=== PATIENT | female | born 1990 | race Caucasian/White ===

== ENCOUNTER → 2020-09-14 15:46 | Outpatient (BNVA) | payer BC, MEDICAID, SELFPAY | PROVIDERS: Family Provider Family Medicine; PCP Dermatology; Visit Provider Obstetrics & Gynecology | DX: Z12.9 Encounter for screening for malignant neoplasm, site unspecified (principal) | CPT/HCPCS: 88305 ==

== ENCOUNTER → 2021-10-23 10:34 | Outpatient (BNVA) | payer BC, MEDICAID, SELFPAY | PROVIDERS: Family Provider Family Medicine; PCP Dermatology; Visit Provider Obstetrics & Gynecology | DX: Z12.4 Encounter for screening for malignant neoplasm of cervix (principal); Z11.3 Encounter for screening for infections with a predominantly sexual mode of transmission; R53.83 Other fatigue | CPT/HCPCS: 84443; 85025; 86592; 86803; 87340; 87491; 87591; 87624; 87806 ==

== ENCOUNTER 2022-08-22 18:04 | Emergency (ER) | payer BC, MEDICAID, SELFPAY ==
[2022-08-22 18:08] VITALS: BP 118/83; PULSE 112; RESP 18; TEMP 37.1; O2SAT 97; BMI 34.1
--- NOTE | 2022-08-22 18:15 | XRR_ITS ---
PROCEDURE INFORMATION: Exam: XR Chest Exam date and time: 08/22/2022 6:20 PM Age: 32 years old Clinical indication: Fever TECHNIQUE: Imaging protocol: Radiologic exam of the chest. Views: 1 view. COMPARISON: CR XR chest 1V [id number] 08/01/2017 3:29 PM FINDINGS: Lungs: Unremarkable. No consolidation. Pleural spaces: Unremarkable. No pleural effusion. No pneumothorax. Heart/Mediastinum: Unremarkable. No cardiomegaly. Bones/joints: Unremarkable. XR/XR chest 1V portable [id number] IMPRESSION: No acute findings.
--- NOTE | 2022-08-22 18:27 | W.ED.URI ---
HPI - URI/Sore Throat General: Chief Complaint: Fever Stated Complaint: fever flu like symptoms Time Seen by Provider: 08/22/22 18:14 History of Present Illness: Patient is a 32-year-old female who comes to the ED with upper respiratory symptoms. 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 Rapid COVID swab was done at her work and it was negative. Her symptoms started approximately 2 days ago she has been having a fever, chills, body aches, cough, nasal congestion drainage and a sore throat. She had a temp of 104 today and took 800 mg of Motrin at 515. Denies any nausea or vomiting. Associated symptoms: Reports chills, fever(s) and nasal congestion; Deny abdominal pain, chest pain, diarrhea, headache(s), nausea or vomiting Review of Systems Const: Reports: fever(s), chills and body aches; Denies: fatigue Eyes: Denies: change in vision or eye discomfort ENMT: Reports: throat pain, nasal discharge and nasal congestion; Denies: odynophagia Card: Denies: chest pain, palpitations, edema, swelling of feet/ankles, dyspnea on exertion or orthopnea Resp: Reports: non-productive cough; Denies: dyspnea or productive cough GI: Denies: abdominal pain, nausea, vomiting, diarrhea, constipation or hematochezia : Denies: flank pain, dysuria or hematuria Musc: Denies: neck pain, back pain or extremity swelling Skin/Breast: Denies: rash or new lesions Neuro: Denies: headache(s), numbness in extremities or weakness in extremities PFSH ED PFSH: Medical History No pertinent past medical history Denies diabetes, asthma, hypertension, seizures, DVT/PE PCP: Maria E Singh Surgical History S/P section x 2 12/30/2014----->Primary low transverse delivery done by Dr. Castellano at [facility] [place] for breech presentation in active labor at 37 weeks and 4 days. No immediate postoperative complications. 01/15/2018------->Repeat low transverse section with bilateral salpingectomy for sterilization by Dr. Pavel Martinez at S/P tubal ligation 01/15/18 Dr Martinez--- total salpingectomy performed bilaterally at time of last Family History Mother Diabetes Hypertension Uterine cancer diagnosed in her mid 30s Grandmother Diabetes maternal Hypertension paternal Heart disease maternal Ovarian cancer maternal, diagnosed in her early 30s Uterine cancer maternal Thyroid condition maternal Family/Other Diabetes paternal uncle Ovarian cancer maternal aunt, diagnosed in her 30s Denies family history of Colon cancer Hyperlipidemia Breast cancer Stroke Physical Exam Const: COMMON NORMALS: no acute distress, patient oriented x3, healthy appearing and alert GENERAL APPEARANCE: cooperative HENMT: COMMON NORMALS: normocephalic HEAD & SCALP: normocephalic MOUTH: Normal oral and palatal mucosa present THROAT: uvula midline and posterior oropharynx abnormal erythema Eye: COMMON NORMALS: Equal, round and reactive pupils present and conjunctivae normal CONJUNCTIVA: Yes conjunctivae normal PUPIL: Yes Equal, round and reactive pupils present Neck/C-Spine: COMMON NORMALS: supple GENERAL: Yes normal visual inspection Resp: COMMON NORMALS: normal respiratory effort, No retractions, No use of accessory muscles and clear to auscultation bilaterally EFFORT & INSPECTION: Yes Actively coughing dry AUSCULTATION: clear to auscultation bilaterally Cardio: COMMON NORMALS: regular rate, regular rhythm, S1 normal heart sound present, S2 normal heart sound present, No gallops present (Cardio), No clicks present (Cardio), No murmurs present (Cardio) and Peripheral pulses 2+ throughout RATE: regular rate RHYTHM: regular rhythm HEART SOUNDS: S1 normal heart sound present and S2 normal heart sound present PERIPHERAL PULSES: Peripheral pulses 2+ throughout GI: COMMON NORMALS: Normal to inspection, nondistended, normoactive bowel sounds present, Soft to palpation, non-tender and no masses PALPATION: Yes Soft to palpation : COMMON NORMALS: Yes no CVA tenderness BLADDER/KIDNEY EXAM: Yes no CVA tenderness Back/Pelvis: COMMON NORMALS: no CVA tenderness Extremity: COMMON NORMALS: normal to inspection Neuro: COMMON NORMALS: patient oriented x3 SENSORIUM/ORIENTATION: Yes alert GAIT: Yes Normal gait present Skin: GENERAL SKIN EXAM: dry skin Course Vital Signs: Vital signs: Vital Signs Temperature 99.3 F 01/04/23 18:39 Pulse Rate 104 H 08/22/22 18:39 Respiratory Rate 16 08/22/22 18:39 Blood Pressure 118/79 08/22/22 18:39 Pulse Oximetry 94 08/22/22 18:39 Oxygen Delivery Me thod 08/22/22 18:39 MDM - URI/Sore Throat Medical Decision Making Patient is a 32-year-old female who comes to the ED with upper respiratory symptoms. 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 Rapid COVID swab was done at her work and it was negative. Her symptoms started approximately 2 days ago she has been having a fever, chills, body aches, cough, nasal congestion drainage and a sore throat. She had a temp of 104 today and took 800 mg of Motrin at 515. Denies any nausea or vomiting. Vitals are stable. Chest x-ray showed no acute findings. Strep was negative. Influenza a positive. Patient was stable for discharge home and diagnosed with influenza A. She was told to follow-up with PCP in the next week for reevaluation. Patient understood and agreed with plan. Lab Data I reviewed the patient's lab results. Radiology Impressions Chest X-Ray 08/22/22 18:15 IMPRESSION: No acute findings. Laboratory Results Influenza Type A Ag Positive (Negative) H 08/22/22 18:38 Influenza Type B Ag Negative (Negative) 08/22/22 18:38 Group A Strep Rapid Negative (Negative) 08/22/22 18:38 Discharge Plan Discharge Patient Disposition: Home Clinical Impression: Influenza A Condition: Stable Prescriptions: New azithromycin 250 mg tablet See Rx Instructions .ROUTE .COMPLEX Qty: 6 0RF Rx Instructions: For 250 mg dose pack: take 500 mg today (day 1), then 250 mg for 4 days (days 2-5) prednisone 20 mg tablet 20 mg PO BID 5 Days Qty: 10 0RF No Action phentermine 37.5 mg capsule 37.5 mg PO DAILY Rx Instructions: must administer 30 minutes before or 1-2 hours after breakfast Discharge Orders: Discharge ED (Routine); Ordered 08/22/22 Ordered By: Martin Ambriz Referrals: Norma Serrano MD [Family Provider] - Discharge Diet: Regular Discharge Activity: Resume usual activity Patient Instructions: Influenza (ED) Activity Restrictions/Additional Instructions: Follow-up with medical provider as directed in the next 5 to 7 days for reevaluation. Take medications as prescribed. Return to the ER or your medical provider if condition worsens. Please read and understand discharge instructions. Thank you for choosing [facility] for your healthcare needs today. Please realize this is an emergency room and that we are providing you with a medical screening exam and this may not be complete and all inclusive of all the testing and or work up that you may need to determine your ailment or severity of your illness. It is very important that you follow up as instructed or that you return to the Emergency Department should you have concerns or if your condition changes or worsens in any way. Stand Alone Forms: Work/School Release Coding Level of Care Code ED General Service Officer for Vinayak Veliz Exam Comprehensive
[2022-08-22 18:39] VITALS: BP 118/79; PULSE 104; RESP 16; TEMP 37.4; O2SAT 94
[2022-08-22 18:59] LABS: Rapid Strep A Test Negative (Negative)
[2022-08-22 19:11] LABS: Influenza A by IFA Positive (Negative); Influenza B by IFA Negative (Negative)
== END 2022-08-22 19:28 | disposition home or self-care (01) ==
PROVIDERS: Emergency Provider Physician Assistant; Family Provider Family Medicine
DX: J10.1 Influenza due to other identified influenza virus with other respiratory manifestations (principal)
CPT/HCPCS: 71045; 87081; 87804; 87880; 99284

== ENCOUNTER → 2022-11-13 12:10 | Outpatient (BNVA) | payer BC, MEDICAID, SELFPAY | PROVIDERS: Family Provider Family Medicine; Visit Provider Nurse Practitioner Women's Health | DX: Z11.3 Encounter for screening for infections with a predominantly sexual mode of transmission (principal) | CPT/HCPCS: 86592; 86803; 87340; 87806 ==

== ENCOUNTER 2023-03-21 11:09 | Outpatient (CLI) | payer BC, MEDICAID, SELFPAY ==
--- NOTE | 2023-03-21 11:22 | XR_ITS ---
WS: [id number] Lumbar spine, 3 views, 03/21/2023 Clinical Data: LUMBAR PAIN Comparison: Lumbar spine, 09/17/2018 Findings: No compression fractures or subluxation is seen. No disc space narrowing is seen. The transverse proc esses and SI joints are normal. XR/XR lumbar spine 2-3V* [id number] Impression: Negative lumbar spine.
--- NOTE | 2023-03-21 11:22 | XR_ITS ---
WS: [id number] Thoracic spine, 2 views, 03/21/2023 Clinical Data: THORACIC SPINE PAIN Comparison: Thoracic spine, 09/17/2018 Findings: No compression fractures are seen. The disc heights are normal. The paravertebral regions are normal. XR/XR thoracic spine 2V [id number] Impression: Negative thoracic spine.
--- NOTE | 2023-03-21 11:22 | XR_ITS ---
WS: [id number] Cervical spine, 3 views, 03/21/2023 Clinical Data: NECK PAIN Comparison: Cervical spine, 01/15/2006. Findings: No compression fractures are seen. The disc heights are normal. There is no prevertebral so ft tissue swelling. The odontoid is unremarkable. The soft tissues of the neck and the lung apices ar e normal. XR/XR cervical spine 3V* [id number] Impression: Negative cervical spine.
== END 2023-03-21 11:10 | disposition home or self-care (01) ==
LOC: RAD 11:14
PROVIDERS: PCP Nurse Practitioner Family; Visit Provider Nurse Practitioner Family
DX: M54.50 Low back pain, unspecified (principal); M54.2 Cervicalgia; M54.6 Pain in thoracic spine
CPT/HCPCS: 72040; 72070; 72100

== ENCOUNTER → 2023-04-18 19:02 | Outpatient (BNVA) | payer BC, MEDICAID, SELFPAY | PROVIDERS: PCP Nurse Practitioner Family; Visit Provider Registered Nurse Neonatal Intensive Care | DX: J02.9 Acute pharyngitis, unspecified (principal) | CPT/HCPCS: 87071; 87880 ==

== ENCOUNTER → 2023-07-23 08:32 | Outpatient (BNVA) | payer BC, MEDICAID, SELFPAY | PROVIDERS: PCP Nurse Practitioner Family; Visit Provider Nurse Practitioner Women's Health | DX: R10.2 Pelvic and perineal pain (principal) | CPT/HCPCS: 76830; 81000 ==

== ENCOUNTER 2023-09-19 08:51 | Inpatient (IN) | payer BC, MEDICAID, SELFPAY ==
[2023-09-19] VITALS (21 sets, daily range): BP systolic 91–151; BP diastolic 58–97; PULSE 84–119; RESP 16–20; TEMP 36.1–37.2; O2SAT 91–100
--- NOTE | 2023-09-19 05:08 | W.PM.OPSFHP ---
Same Day Surgery H&P Indication for Procedure/HPI DATE OF PROCEDURE: September 19, 2023 CHIEF COMPLAINT/INDICATIONFOR SURGICAL PROCEDURE: heavy menstrual bleeding chronic pelvic pain fibroid uterus PREOP DIAGNOSIS: heavy menstrual bleeding, fibroid uterus PLANNED PROCEDURE: Operation Date: 09/19/23 07:00 Proposed Procedures p Total abdominal hysterectomy 31902,R10.2,D25.9(Not Applicable) - Ramiro Curiel MD 33 y.o. h/o BTL 2018 h/o c-sections x two h/o irregular heavy periods with fibroid uterus on pelvic sono now scheduled for total abdominal hysterectomy Medications/Allergies* Home Medications Medication Instructions Recorded Confirmed Type phentermine 37.5 mg tablet 37.5 ea PO DAILY 04/18/23 09/18/23 History Allergies/Adverse Reactions Allergy/AdvReac Type Severity Reaction Status Date / Time peanut Allergy swelling/hi Verified 09/18/23 12:00 ves Pertinent History/Comorbid Conditions* Medical History (Updated 08/06/23 @ 15:53 by Charlotte Bee NP) No pertinent past medical history Denies diabetes, asthma, hypertension, seizures, DVT/PE PCP: Maria E Singh Surgical History (Updated 09/20/20 @ 17:43 by Karen Skinner MD) S/P tubal ligation 01/15/18 Dr Martinez--- total salpingectomy performed bilaterally at time of last S/P section x 2 12/30/2014----->Primary low transverse delivery done by Dr. Castellano at [facility] [place] for breech presentation in active labor at 37 weeks and 4 days. No immediate postoperative complications. 01/15/2018------->Repeat low transverse section with bilateral salpingectomy for sterilization by Dr. Pavel Martinez at [facility] Family History (Updated 10/23/21 @ 10:33 by Duyen Choudhary RN) Ovarian cancer Grandmother maternal, diagnosed in her early 30s Family/Other maternal aunt, diagnosed in her 30s Diabetes Mother Grandmother maternal Family/Other paternal uncle Heart disease Grandmother maternal Hypertension Mother Grandmother paternal Uterine cancer Mother diagnosed in her mid 30s Grandmother maternal Thyroid disease Grandmother maternal Denies family history of Colon cancer Hyperlipidemia Breast cancer Stroke Pertinent Exam Findings alert, oriented x 3, clear to auscultation bilaterally and regular rate & rhythm Recommendations Surgery/Procedure today Coding Level of Care Code Acute Code for Chg Fwd Time Spent (min) 10
[2023-09-19] MEDS: sodium chloride 0.9% 1,000 ML 30 ML IV (06:22)
[2023-09-19] MEDS: scopolamine 1.5 Patch 1 PATCH TRANSDERMA (06:23)
--- NOTE | 2023-09-19 06:35 | ANES.PREANE2 ---
Pre-Anesthetic Assessment Height/Weight: Height 1.65 m Weight 103.419 kg Temp Pulse Resp BP Pulse Ox O2 Del Method 97.3 F L 84 16 151/90 100 Room Air 09/19/23 05:53 09/19/23 05:53 09/19/23 05:53 09/19/23 05:53 09/19/23 05:53 09/19/23 06:09 Preop Diagnosis: heavy menstrual bleeding, fibroid uterus Operation Date: 09/19/23 07:00 Proposed Procedures p Total abdominal hysterectomy 26373,R10.2,D25.9(Not Applicable) - Ramiro Curiel MD Familial anesthetic complications: None Was Beta Ana taken within 24 hours: N/A Was Clonidine taken within 24 hours: N/A Last intake: Intake Last Liquid Date 09/18/23 Last Liquid Time 22:00 Last Solid Date 09/18/23 Last Solid Time 22:00 Social No alcohol and No tobacco Exam alert, oriented x 3, clear to auscultation bilaterally and regular rate & rhythm Airway Mallampati: Class II Dentition: full Metabolic Morbid Obesity Anesthetic Plan ASA status: 2 Anesthesia: General Risk of > 500 ml blood loss (7ml/kg in children): No Medications/Allergies Home Medications Medication Instructions Recorded Confirmed Last Taken Type phentermine 37.5 mg tablet 37.5 ea PO DAILY 04/18/23 09/18/23 08/19/23 History Allergies Allergy/AdvReac Type Severity Reaction Status Date / Time No Known Allergies Allergy Verified 09/19/23 06:00 Current Medications Generic Name Dose Route Start Last Admin Trade Name Freq PRN Reason Stop Dose Admin Sodium Chloride 1,000 mls @ 30 mls/hr 09/19/23 06:00 09/19/23 06:22 Sodium Chloride 0.9% IV 09/20/23 05:59 30 mls/hr .Q24H MICHELLE Administration PFSH Anesthesia Medical History No pertinent past medical history Denies diabetes, asthma, hypertension, seizures, DVT/PE PCP: Maria E Singh Surgical History S/P tubal ligation 01/15/18 Dr Martinez--- total salpingectomy performed bilaterally at time of last S/P section x 2 12/30/2014----->[place] transverse [place] [facility] [place]ch presentation in active labor at 37 weeks and 4 days. No immediate postoperative complications. 01/15/2018------->Repeat low transverse section with bilateral salpingectomy for sterilization by Dr. Pavel Martinez at [facility] Family History Mother Diabetes Hypertension Uterine cancer diagnosed in her mid 30s Grandmother Diabetes maternal Hypertension paternal Heart disease maternal Ovarian cancer maternal, diagnosed in her early 30s Uterine cancer maternal Thyroid disease maternal Family/Other Diabetes paternal uncle Ovarian cancer maternal aunt, diagnosed in her 30s Denies family history of Colon cancer Hyperlipidemia Breast cancer Stroke Female Reproductive History Date of last menstrual period: 08/03/23 Data Anesthesia 09/19/23 06:25 09/19/23 06:25 Cardiac Studies: No Data to Display
[2023-09-19] MEDS: midazolam 1 mg/mL INJ 2 mL 2 MG IVP (06:37)
[2023-09-19 06:39] LABS: Basophils # 0.1 10^3/uL (0.0-0.1); Basophils % 0.3 %; Eosinophils # 0.2 10^3/uL (0.0-0.8); Eosinophils % 1.1 %; Hematocrit 36.4 % (36-47); Lymphocytes # 2.5 10^3/uL (0.8-4.8); Lymphocytes % 16.3 %; Mean Corpuscular HGB Conc 32.4 g/dL (30-55); Mean Corpuscular Volume 80.2 fl (85-98); Monocytes # 1.1 10^3/uL (0.2-0.9); Monocytes % 7.2 %; Neutrophils # 11.08 10^3/uL (1.8-7.7); Neutrophils % 73.5 %; Nucleated Red Blood Cells % 0 %; Platelet Count 301 10^3/cmm (157-399); Red Blood Count 4.54 10^6/uL (3.85-5.65); Red Cell Distribution Width 14.6 % (12.1-15.1); White Blood Count 15.08 10^3/uL (3.29-11.43)
--- NOTE | 2023-09-19 06:45 | W.PM.OPSUD ---
Surgery/Procedure H&P Update DATE OF PROCEDURE: September 19, 2023 DATE H&P PERFORMED: 09/19/23 H&P UPDATE INFORMATION: I have reviewed H&P completed within last 30 days, I have examined patient prior to procedure and No changes to prior documentation PREOP DIAGNOSIS: heavy menstrual bleeding, fibroid uterus PLANNED PROCEDURE: Operation Date: 09/19/23 07:00 Proposed Procedures p Total abdominal hysterectomy 21799,R10.2,D25.9(Not Applicable) - Ramiro Curiel MD
[2023-09-19 06:53] LABS: Alanine Aminotransferase 13 U/L (0-33); Albumin Level 3.9 g/dL (3.5-5.2); Alkaline Phosphatase 98 U/L (35-105); Aspartate Amino Transferase 12 U/L (0-32); Blood Urea Nitrogen 14 mg/dL (6-20); Calcium 8.9 mg/dL (8.5-10.5); Carbon Dioxide 22 mmol/L (22-29); Chloride 110 mmol/L (98-107); Globulin 3.1 g/dL (1.3-4.6); Glucose 93 mg/dL (65-115); Osmolality Calculated 292 mOsm/kg (285-295); Sodium 141 mmol/L (136-145); Total Bilirubin 0.2 mg/dL (0.15-1.2)
[2023-09-19] MEDS: ceFAZolin 2,000 MG in sodium chloride 0.9% (plus) 50 ML 200 MG IV (06:59)
[2023-09-19 07:35] LABS: OR HCG Qualitative Urine Negative (Negative)
[2023-09-19] MEDS: BUPivacaine liposome 13.3 mg/mL SDV 10 mL 133 MG INJECTION (07:55)
[2023-09-19] MEDS: ceFAZolin 1,000 mg SDV 2000 MG IVP (10:56)
--- OUTSIDE RECORDS SUMMARY | 2023-09-19 11:19 | XMS_ITS | Patient Health Record ---
Author Name Unknown Organization [facility] Address [address] [place] [address] Care Team Providers Care Vice President Of Consulting Services Name Role Phone [facility] Primary Care Provider ALLAMUCHY, [facility] Unavailable Unavailable ALLERGIES No Known Allergies REASON FOR REFERRAL No Information MEDICATIONS Medication SIG (Take, Route, Frequency, Duration) Notes Start Date End Date Status Phentermine HCl 37.5 MG 1 tablet Oral On ce a day for 30 days 09/12/2023 Active Ibuprofen 800 MG 1 tablet with food o r milk as needed Orally every 8 hrs PRN for 90 days 06/06/2024 Active busPIRone HCl 15 MG 1/2 to 1 tab Orally three times a day for moderate anxiety for 30 days Not-Taking traMADol HCl 50 MG TAKE 1 TABLET BY SUKHWINDER TH EVERY 4 HOURS NEEDED FOR SEVERE PAIN FOR 30 DAYS for 30 09/13/2023 Active Venlafaxine HCl ER 37.5 MG TAKE 1 CAPSULE BY MOUTH ONCE DAILY IN THE MORNING FOR 30 DAYS Oral for 30 Days Not-Taking SOCIAL HISTORY Tobacco Use: Social History Observation Description Date Details (start date - stop date) Former Smoker NA - NA Sex Assigned At : Social History Observation Description Sex Assigned At Unknown Tobacco Use/Smoking Question Answer Notes Are you a former smoker How long has it been since you last smoked? > 10 years Alcohol Screen (Audit-C) Question Answer Notes Did you have a drink containing alcohol in the p ast year? No Points 0 Interpretation Negative PHQ-9 Question Answer Notes Little interest or pleasure in doing things Not at all Feeling down, depressed, or hopeless Not at all Trouble falling or staying asleep, or sleeping t oo much Not at all Feeling tired or having little energy Not at all Poor appetite or overeating Not at all Feeling bad about yourself, or that you are a failure, or have let yourself or your family down Not at all Trouble concentrating on thi ngs, such as reading the newspaper or watching television Not at all Moving or speaking so slowly that other people could have noticed. Or the opposite ? being so fidgety or restless that you have been moving around a lot more than usual Not at all Thoughts that you would be b sai off , or of hurting yourself in some way Not at all Total Score 0 PROBLEMS Problem Type ICD Code Onset Dates Problem Status W/U Status Risk SNOMED Code Notes Problem Morbid (severe) obesity due to excess calories (E66.01) Active confirmed Morbid obesity (disorder) (808488903) Problem Anxiety (F41.9) Active confirmed 886196 02 Problem Obesity (BMI 30-39.9) (E66.9) Active confirmed 935619513 Problem Obesity, unspecified classification, unspecified obesity type, unspecified whether serious comorbidity present (E66.9) Active confirmed 067281811 Problem BMI 40.0-44.9, adult (Z68.41) Active confirmed 183840849 Problem Acute non-recurrent frontal sinusitis (J01.10) Active confirmed 95213862 Problem Other depression (F32.89) Active confirmed 11517354 Problem Morbid obesity (E66.01) Active confirmed 777054014 Problem Major depressive disorder with single episode, remission status unspecified (F32.9) Active confirmed 93628480 Problem Encounter for weight management (Z76.89) Active confirmed 519717784 Problem Body mass index [BMI] 36.0-36.9, adult (Z68.36) Active confirmed 442684511 Problem Body mass index [BMI] 37.0-37.9, adult (Z68.37) Active confirmed 883422866 Problem Body mass index [BMI] 38.0-38.9, adult (Z68.38) Active confirmed 088340354 Problem Body mass index [BMI] 39.0-39.9, adult (Z68.39) Active confirmed 534378736 VITAL SIGNS Heart Rate 88 /min 09/12/2023 Temperature 97.7 degrees Fahrenheit 09/12/2023 Respiratory Rate 18 /min 09/12/2023 Height-cm 162.56 cm 09/12/2023 Oximetry 98 % 09/12/2023 Blood pressure diastolic 80 mm Hg 09/12/2023 Weight-kg 111.13 kg 09/12/2023 Height 64 in 09/12/2023 Blood pressure systolic 130 mm Hg 09/12/2023 Weight 245 lbs 09/12/2023 BMI 42.05 kg/m2 09/12/2023 Encounters Encounter Location Date Provider Diagnosis [facility] [address] [place] [address] 03/14/2023 [facility] Lumbar pain M54.50 [facility] [address] [place] [address] 03/22/2023 [facility] [address] [place] [address] 05/30/2023 [facility] [address] [place] [address] 05/30/2023 Maria E Orr Muscle spasm M62.838 and Thoracic spine pain M54.6 [facility] [address] [place] [address] 08/02/2023 Maria E Singh Thoracic spine pain M54.6 [facility] [address] [place] [address] 08/26/2023 [facility] [address] [place] [address] 09/10/2023 [facility] [address] [place] [address] 09/12/2023 [facility] Morbid (severe) obesity due to excess calories E66.01 ; BMI 40.0-44.9, adult Z68.41 and Uterine mass N85.8 [facility] [address] [place] [address] 06/24/2023 Maria E Singh Bronchitis J40 ; Former smoker Z87.891 ; Obesity (BMI 30-39.9) E66.9 and Body mass index [BMI] 39.0-39.9, adult Z68.39 [facility] [address] [place] [address] 07/23/2023 [facility] [address] [place] [address] 07/30/2023 [facility] [address] [place] [address] 04/26/2023 [facility] [address] [place] [address] 05/21/2023 [facility] Anxiety F41.9 ; Othe r depression F32.89 ; Obesity (BMI 30-39.9) E66.9 and Body mass index [BMI] 39.0-39.9, adult Z68.39 [facility] [address] [place] [address] 03/21/2023 [facility] Thoracic spine pain M54.6 ; Lumbar pain M54.50 ; Neck pain M54.2 and Body mass index [BMI] 39.0-39.9, adult Z68.39 [facility] [address] [place] [address] 12/11/2022 [facility] Other depression F32.89 ; Anxiety F41.9 ; Obesity (BMI 30-39.9) E66.9 ; Muscle spasm M62.838 ; Acute pain of right shoulder M25.511 and Body mass index [BMI] 39.0-39.9, adult Z68.39 [facility] [address] [place] [address] 02/15/2023 [facility] [address] [place] [address] 02/18/2023 [facility] Body mass index [BMI ] 39.0-39.9, adult Z68.39 ; Other depression F32.89 and Obesity (BMI 30-39.9) E66.9 ASSESSMENTS Encounter Date Diagnosis Assessment Notes Treatment Notes Treatment Clinical Notes 12/11/2022 Anxiety (ICD-10 - F41.9) continue meds 12/11/2022 Other depression (ICD-10 - F32.89) effexor xr 02/18/2023 Other depression (ICD-10 - F32.89) continue effexor continue with time off work and vacation days at [employer] with family 02/18/2023 Body mass index [BMI] 39.0-39.9, adult (ICD-10 - Z68.39) Discussed with the diet, increase water intake, increase activity, decrease calorie intake, take medication as directed; phentermine e script to patient pharmacy. Patient to lose minimum of 4 pounds and return to clinic 1 month and prn. Pts questions asked and answered. Discharged to home. 03/14/2023 Lumbar pain (ICD-10 - M54.50) 03/21/2023 Thoracic spine pain (ICD-10 - M54.6) tramadol prn severe continue ibuprofen prn as directed x ray 03/21/2023 Lumbar pain (ICD-10 - M54.50) x ray 05/21/2023 Anxiety (ICD-10 - F41.9) buspar 05/21/2023 Other depression (ICD-10 - F32.89) effexor 05/30/2023 Muscle spasm (ICD-10 - M62.838) 06/24/2023 Bronchitis (ICD-10 - J40) z wanda increased fluids 06/24/2023 Former smoker (ICD-10 - Z87.891) 08/02/2023 Thoracic spine pain (ICD-10 - M54.6) 09/12/2023 Morbid (severe) obesity due to excess calories (ICD-10 - E66.01) Discussed with the diet, increase water intake, increase activity, decrease calorie intake, take medication as directed; phentermine e script to patient pharmacy. Patient to lose minimum of 4 pounds and return to clinic 1 month and prn. Pts questions asked and answered. Discharged to home. 09/12/2023 BMI 40.0-44.9, adult (ICD-10 - Z68.41) 09/12/2023 Uterine mass (ICD-10 - N85.8) proceed surgery as planned 06/24/2023 Obesity (BMI 30-39.9) (ICD-10 - E66.9) Discussed with the diet, increase water intake, increase activity, decrease calorie intake, take medication as directed; phentermine e script to patient pharmacy. Patient to lose minimum of 4 pounds and return to clinic 1 month and prn. Pts questions asked and answered. Discharged to home. 02/18/2023 Obesity (BMI 30-39.9) (ICD-10 - E66.9) 05/30/2023 Thoracic spine pain (ICD-10 - M54.6) 05/21/2023 Obesity (BMI 30-39.9) (ICD-10 - E66.9) 03/21/2023 Neck pain (ICD-10 - M54.2) x ray 12/11/2022 Obesity (BMI 30-39.9) (ICD-10 - E66.9) Discussed with the diet, increase water intake, increase activity, decrease calorie intake, take medication as directed; phentermine e script to patient pharmacy. Patient to lose minimum of 4 pounds and return to clinic 1 month and prn. Pts questions asked and answered. Discharged to home. 12/11/2022 Muscle spasm (ICD-10 - M62.838) parafon 03/21/2023 Body mass index [BMI] 39.0-39.9, adult (ICD-10 - Z68.39) Discussed with the diet, increase water intake, increase activity, decrease calorie intake, take medication as directed; phentermine e script to patient pharmacy. Patient to lose minimum of 4 pounds and return to clinic 1 month and prn. Pts questions asked and answered. Discharged to home. 05/21/2023 Body mass index [BMI] 39.0-39.9, adult (ICD-10 - Z68.39) Discussed with the diet, increase water intake, increase activity, decrease calorie intake, take medication as directed; phentermine e script to patient pharmacy. Patient to lose minimum of 4 pounds and return to clinic 1 month and prn. Pts questions asked and answered. Discharged to home. 06/24/2023 Body mass index [BMI] 39.0-39.9, adult (ICD-10 - Z68.39) 12/11/2022 Acute pain of right shoulder (ICD-10 - M25.511) follow up with work and PT at her work as planned 12/11/2022 Body mass index [BMI] 39.0-39.9, adult (ICD-10 - Z68.39) 12/11/2022 Other Questions asked and answered; discharged to home. 02/18/2023 Other Questions asked and answered; discharged to home. 03/21/2023 Other Questions asked and answered; discharged to home. 05/21/2023 Other Questions asked and answered; discharged to home. 06/24/2023 Other Questions asked and answered; discharged to home. 09/12/2023 Other Questions asked and answered; discharged to home. PLAN OF TREATMENT Pending Test Test Name Order Date Cervical Spine AP/Lat 2-3 Views-[id number] Lumbosacral Spine AP/Lat-[id number] Thoracic Spine AP/Lat-[id number] 03/21/2023 Insurance Providers Payer Name Payer Address Payer Phone Subscriber Number Group Number Insured Name Patient Relationship to Insured Coverage Start Date Coverage End Date [employer] [place] Medicaid Replacement [address] [address] [place] [address] [id number] Belkis Palacios Self - patient is the insured MEDICAL (GENERAL) HISTORY Medical History History ICD Code Chicken Pox Pneumonia anemia bladder infections migraine headaches Back Trouble bronchitis asthma anxiety depression kidney stones Surgical History Surgery Date(Month/Year) section 12/30/2014 section 01/15/2018 tubal ligation Hospitalization History Reason Date(Month/Year) section 01/15/2018 section 12/30/2014
--- NOTE | 2023-09-19 12:30 | ANE.PACU2 ---
Inpatient post-anesthesia follow up: Airway intact: Yes Vital signs: Temperature 97 F Pulse Rate 102 Respiratory Rate 18 Blood Pressure 140/82 Pulse Oximetry 93 Oxygen Delivery Me thod Room Air Oxygen Flow Rate 5 Fraction of Inspir ed Oxygen Hydration adequate: Yes Nausea and vomiting: No Pain level: 1 Mental status: Baseline
[2023-09-19] MEDS: ondansetron 2 mg/ML SDV 2 mL 4 MG IVP (12:31)
[2023-09-19] MEDS: fentaNYL 50 mcg/mL INJ 2mL IVP (12:49)
[2023-09-19] MEDS: ketorolac 30 mg/mL INJ IVP ×2 (13:00→17:41)
[2023-09-19] MEDS: dextrose 5%-lactated ringers 1,000 ML 125 ML IV (13:01)
--- NOTE | 2023-09-19 13:15 | P.OP_ITS ---
Operative Report Date of procedure: September 19, 2023 Pre-op diagnosis: chronic heavy menstrual bleeding chronic pelvic pain h/o c-sections x two Post-op diagnosis: same Post-op findings: uterus enlarged with fibroids and adenomyosis Normal ovaries Dense adhesions from bladder to lower cervical segment Procedure done: supracervical abdominal hysterectomy Repair of 3 cm bladder laceration Implants: none Specimens removed/disposition: uterus Surgeon: Ramiro Curiel MD Product Marketing Intern: Deshawn sOuna MD Anesthesia: General Estimated blood loss (mL): 750 Complications: 3 cm bladder laceration, repaired Condition: stable Disposition: floor Brief History: 33 y.o. with chronic heavy menstrual bleeding and chronic pelvic pain Procedure: Informed consent obtained. The patient was taken to the operating room and placed supine on the table. General endotracheal anesthesia was induced. The abdomen was prepped and draped in the usual sterile fashion. A alcantara catheter was placed which drained clear urine. A pfannenstiel incision was made over an old scar and carried down through skin and subcutaneous tissue and fascia. The fascia was sharply incised. The rectus muscles were and the abdomen was entered bluntly in the midline. The pelvic contents were visualized and examined. An Angel-O retractor was placed. The bowels were packed out of the way. The Ligasure device was used throughout for vessel sealing and cutting. The hysterectomy was begun by dividing and ligating the round ligaments bilaterally. The infundibulopelvic ligaments were divided and skeletonized bilaterally. The ovaries were preserved by dividing the uterus from the uteroovarian ligaments. The vesicouterine peritoneal fold was incised in a transverse curvilinear fashion and sharply dissected downward mobilizing the bladder off the lower uterine segment. The uterine vessels were skeletonized and bilaterally divided and ligated. The procedure was carried down on both sides of the uterus until the cardinal uterosacral ligament was reached. The cervix was then incised. It was noted at this time that there was a 3 cm bladder laceration. Repair of the laceration was carried out using two layers of 2-O chromic and 2-O Vicryl, with the second layer being an imbricating stitch. Testing of the integrity of the repair was carried out using infusion of sterile baby formula via the Alcantara catheter. There was no extravasation of formula seen following the repair. Due to the dense adhesion between the bladder and lower cervical segment, it was decided to perform a supracervical hysterectomy. A 2 cm cervical stump was left following the hysterectomy. The pelvis was inspected and irrigated. There was no bleeding. The abdominal packs were removed as was the retractor. The fascia was then closed with a continuous stitch of O-Vicryl. The subcutaneous tissue was irrigated and inspected for hemostasis. The skin was then reapproximated using Insorb absorbable subcuticular skin jenn. The patient was then placed supine, extubated, and taken to the recovery room. Postoperative condition: stable EBL: 750 cc Sponge, needle, instruments counts were correct x two.
[2023-09-19] MEDS: oxyCODONE-APAP 5-325 mg Tablet PO ×2 (14:24→21:22)
[2023-09-19] MEDS: morphine 4 mg/mL SDV 1 mL IVP ×2 (14:32→17:40)
[2023-09-19] MEDS: phenazopyridine 100 mg Tablet 200 MG PO ×2 (14:49→22:27)
[2023-09-19] MEDS: oxybutynin chloride XL 5 MG TABLET 10 MG PO (17:39)
[2023-09-19] MEDS: docusate sodium 100 mg Capsule PO (17:42)
[2023-09-20] MEDS: ketorolac 30 mg/mL INJ IVP ×2 (00:48→07:25)
[2023-09-20 03:39] VITALS: RESP 16; O2SAT 98
[2023-09-20] MEDS: oxyCODONE-APAP 5-325 mg Tablet PO ×2 (03:39→10:45)
[2023-09-20 03:41] VITALS: BP 103/69; PULSE 76; RESP 16; TEMP 36.7; O2SAT 100
[2023-09-20 05:37] LABS: Hematocrit 31.7 % (36-47); Mean Corpuscular HGB Conc 31.9 g/dL (30-55); Mean Corpuscular Hemoglobin 26.3 pg (27-33); Mean Corpuscular Volume 82.6 fl (85-98); Mean Platelet Volume 9.2 fL (7.4-10.4); Platelet Count 298 10^3/cmm (157-399); Red Blood Count 3.84 10^6/uL (3.85-5.65); Red Cell Distribution Width 14.9 % (12.1-15.1); White Blood Count 20.56 10^3/uL (3.29-11.43)
[2023-09-20 10:05] VITALS: BP 104/73; PULSE 75; RESP 17; TEMP 36.7
[2023-09-20 10:45] VITALS: RESP 17
[2023-09-20] MEDS: oxybutynin chloride XL 5 MG TABLET 10 MG PO (10:45)
[2023-09-20] MEDS: simethicone 80 mg Chew PO ×2 (10:45→18:26)
[2023-09-20] MEDS: phenazopyridine 100 mg Tablet 200 MG PO ×2 (11:25→20:40)
--- NOTE | 2023-09-20 14:10 | P.PN_ITS ---
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 Subjective: Interval history: c/o moderate incisional pain tolerating PO Vitals/I&O/Wt Last Vital Signs Temp 97.4 F L 09/21/23 09:06 Pulse 79 09/21/23 12:38 Resp 16 09/21/23 12:38 BP 118/84 09/21/23 12:38 Pulse Ox 100 09/21/23 12:38 O2 Del Method Room Air 09/21/23 12:30 O2 Flow Rate 5 09/19/23 12:04 Physical Exam 2 Narrative: Comfortable Afebrile VS normal Lungs: clear Cor: RRR Abd: soft, nondistended Mild tenderness No rebound Wound clean and dry Shaffer draining well Ext: normal Urinary Catheter Management: Latex Free: Cath Placed During This Visit: yes Reason for Continuing Indwelling Catheter: Required Immobilization for Trauma or Surgery or Anesthesia Urinary Catheter Date of Insertion: 09/19/23 Urinary Catheter Time of Insertion: 14:30 Data 09/20/23 05:15 09/19/23 06:25 A&P Assessment and plan (1) S/P hysterectomy: POD #1 BIA, repair of bladder laceration Doing well Continue postop care Attestations 2 Medical Necessity Statement*: patient s/p hysterectomy, repair of bladder laceration Coding Level of Care Code Acute Code for Chg Fwd Diagnoses S/P hysterectomy Z90.710 Time Spent (min) 20
[2023-09-20 16:45] VITALS: BP 115/80; PULSE 74; RESP 17; TEMP 36.7
[2023-09-20] MEDS: HYDROcodone-acetaminophen 5-325 mg Tablet PO ×2 (17:27→23:47)
[2023-09-20] MEDS: docusate sodium 100 mg Capsule PO (17:27)
[2023-09-20] MEDS: ibuprofen 800 mg tablet PO (17:49)
[2023-09-20] MEDS: nitrofurantoin SR (BID) 100 mg Capsule PO (20:07)
[2023-09-20 22:10] VITALS: BP 103/57; PULSE 89; RESP 16; TEMP 36.9; O2SAT 96
[2023-09-21] MEDS: simethicone 80 mg Chew PO ×2 (00:51→08:59)
[2023-09-21] MEDS: ibuprofen 800 mg tablet PO ×2 (03:56→12:11)
[2023-09-21 06:24] VITALS: RESP 16
[2023-09-21] MEDS: oxyCODONE-APAP 5-325 mg Tablet PO ×2 (06:24→12:10)
[2023-09-21 06:35] VITALS: BP 112/71; PULSE 88; RESP 16; TEMP 36.6; TEMP 36.7; O2SAT 98
[2023-09-21] MEDS: oxybutynin chloride XL 5 MG TABLET 10 MG PO (08:59)
[2023-09-21] MEDS: nitrofurantoin SR (BID) 100 mg Capsule PO (08:59)
[2023-09-21] MEDS: docusate sodium 100 mg Capsule PO (08:59)
[2023-09-21 09:06] VITALS: BP 115/75; PULSE 77; RESP 17; TEMP 36.3; O2SAT 100
[2023-09-21] MEDS: phenazopyridine 100 mg Tablet 200 MG PO (10:46)
--- NOTE | 2023-09-21 11:50 | P.PN_ITS ---
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 Subjective: Interval history: c/o mild incisional pain eating, ambulating well Vitals/I&O/Wt Last Vital Signs Temp 97.4 F L 09/21/23 09:06 Pulse 79 09/21/23 12:38 Resp 16 09/21/23 12:38 BP 118/84 09/21/23 12:38 Pulse Ox 100 09/21/23 12:38 O2 Del Method Room Air 09/21/23 12:30 O2 Flow Rate 5 09/19/23 12:04 Physical Exam 2 Narrative: Comfortable Afebrile VS normal Lungs: clear Cor: RRR Abd: soft, nondistended Mild tenderness No rebound Wound clean and dry, healing well Alcantara draining well Ext: normal Urinary Catheter Management: Latex Free: Cath Placed During This Visit: yes Reason for Continuing Indwelling Catheter: Required Immobilization for Trauma or Surgery or Anesthesia Urinary Catheter Date of Insertion: 09/19/23 Urinary Catheter Time of Insertion: 14:30 Data 09/20/23 05:15 09/19/23 06:25 A&P Assessment and plan (1) S/P hysterectomy: Plan POD #2 BIA, repair of bladder laceration Doing well Plan discharge today Plan continue alcantara drainage x ten days Return September 24, 2023 Attestations 2 Medical Necessity Statement*: patient s/p hysterectomy, plan discharge today Coding Level of Care Code Acute Code for Chg Fwd Diagnoses S/P hysterectomy Z90.710 Time Spent (min) 20
--- NOTE | 2023-09-21 12:05 | P.DS_ITS ---
Discharge Providers PROGRAM DEVELOPMENT SPECIALIST Date of Admission: 09/19/23 08:51 Date of Discharge: 09/21/23 Attending Provider at Admission: Ramiro Curiel MD Attending Provider at Discharge: Ramiro Curiel MD Consults: none Primary PROGRAM DEVELOPMENT SPECIALIST: Ramiro Curiel MD Primary Care Provider: Maria E Singh APN Diagnoses at Discharge Discharge Diagnosis (1) S/P hysterectomy: Details from hospital stay: patient underwent supracervical hysterectomy complicated by 3 cm bladder laceration, repaired patient did well postop normal postop course plan continue alcantara drainage for 10 days postop Status: Acute Reason for Visit Reason for Visit: D25.9 Brief History: 33 y.o. with chronic menorrhagia and pel daniel pain h/o c-sections x two scheduled for hysterectomy Hospital Course Hospital Course patient underwent supracervical hysterectomy complicated by 3 cm bladder laceration, repaired patient did well postop remained afebrile was able to eat and ambulate without any difficulties normal postop course plan continue alcantara drainage for 10 days postop Physical Exam Narrative: Comfortable Afebrile VS normal Lungs: clear Cor: RRR Abd: soft, nondistended Mild tenderness No rebound Wound clean and dry, healing well Alcantara draining well Ext: normal Urinary Catheter Management: Latex Free: Cath Placed During This Visit: yes Reason for Continuing Indwelling Catheter: Required Immobilization for Trauma or Surgery or Anesthesia Urinary Catheter Date of Insertion: 09/19/23 Urinary Catheter Time of Insertion: 14:30 History History History 3 Term 3 0 Miscarriages/Ectopic 0 Living Children 3 Discharge Data Studies Completed and Pending Completed Studies During Hospitalization Category Date Time Status Pathology: Surgical [PTH] Routine Pth 09/19/23 10:00 Completed Laboratory Results WBC 20.56 10^3/uL (3.29-11.43) H 09/20/23 05:15 RBC 3.84 10^6/uL (3.85-5.65) L 09/20/23 05:15 Hgb 10.10 g/dL (11.27-16.99) L 09/20/23 05:15 Hct 31.7 % (36-47) L 09/20/23 05:15 MCV 82.6 fl (85-98) L 09/20/23 05:15 MCH 26.3 pg (27-33) L 09/20/23 05:15 MCHC 31.9 g/dL (30-55) 09/20/23 05:15 RDW 14.9 % (12.1-15.1) 09/20/23 05:15 Plt Count 298 10^3/cmm (157-399) 09/20/23 05:15 MPV 9.2 fL (7.4-10.4) 09/20/23 05:15 Neut % (Auto) 73.5 % 09/19/23 06:25 Lymph % (Auto) 16.3 % 09/19/23 06:25 [place] % (Auto) 7.2 % 09/19/23 06:25 Eos % (Auto) 1.1 % 09/19/23 06:25 Baso % (Auto) 0.3 % 09/19/23 06:25 Neut # (Auto) 11.08 10^3/uL (1.8-7.7) H 09/19/23 06:25 Lymph # (Auto) 2.5 10^3/uL (0.8-4.8) 09/19/23 06:25 [place] # (Auto) 1.1 10^3/uL (0.2-0.9) H 09/19/23 06:25 Eos # (Auto) 0.2 10^3/uL (0.0-0.8) 09/19/23 06:25 Baso # (Auto) 0.1 10^3/uL (0.0-0.1) 09/19/23 06:25 Nucleated RBC % (auto) 0 % 09/19/23 06:25 Nucleated RBCs # 0.0 /100WBC 09/19/23 06:25 Sodium 141 mmol/L (136-145) 09/19/23 06:25 Potassium 4.0 mmol/L (3.5-5.1) 09/19/23 06:25 Chloride 110 mmol/L (98-107) H 09/19/23 06:25 Carbon Dioxide 22 mmol/L (22-29) 09/19/23 06:25 Anion Gap 13.0 (5-19) 09/19/23 06:25 BUN 14 mg/dL (6-20) 09/19/23 06:25 Creatinine 0.5 mg/dL (0.5-0.9) 09/19/23 06:25 GFR Calculation 143.0 mL/min (90-130) H 09/19/23 06:25 Glucose 93 mg/dL (65-115) 09/19/23 06:25 Calculated Osmolality 292 mOsm/kg (285-295) 09/19/23 06:25 Calcium 8.9 mg/dL (8.5-10.5) 09/19/23 06:25 Total Bilirubin 0.2 mg/dL (0.15-1.2) 09/19/23 06:25 AST 12 U/L (0-32) 09/19/23 06:25 ALT 13 U/L (0-33) 09/19/23 06:25 Alkaline Phosphatase 98 U/L (35-105) 09/19/23 06:25 Total Protein 7.0 g/dL (6.6-8.7) 09/19/23 06:25 Albumin 3.9 g/dL (3.5-5.2) 09/19/23 06:25 Globulin 3.1 g/dL (1.3-4.6) 09/19/23 06:25 Urine HCG, Qual Negative (Negative) 09/19/23 06:26 Blood Type O Positive 09/19/23 06:25 Rho(D) Type Rh positive 09/19/23 06:25 Antibody Screen Negative 09/19/23 06:25 Procedures Performed supracervical hysterectomy repair of 3 cm bladder laceration Vitals Last Vital Signs Temp 97.4 F L 09/21/23 09:06 Pulse 79 09/21/23 12:38 Resp 16 09/21/23 12:38 BP 118/84 09/21/23 12:38 Pulse Ox 100 09/21/23 12:38 O2 Del Method Room Air 09/21/23 12:30 O2 Flow Rate 5 09/19/23 12:04 Results Labs OB ([facility]): Blood Type O Positive 09/19/23 Antibody Screen Negative 09/19/23 Hct 31.7 % (36-47) L 09/20/23 Hgb 10.10 g/dL (11.27-16.99) L 09/20/23 Rho(D) Type Rh positive 09/19/23 Plt Count 298 10^3/cmm (157-399) 09/20/23 Hep Bs Antigen Non-reactive (Nonreactive) 11/13/22 Hepatitis C Antibody Non-reactive (Nonreactive) 11/13/22 RPR Nonreactive (Nonreactive) 11/13/22 HIV 1&2 Ab & HIV 1 Ag Non-reactive (Non-Reactiv) 11/13/22 TSH 1.65 uIU/mL (0.27-4.20) 10/23/21 Pap Smear Interpret See note 10/23/21 Discharge Plan Discharge Patient Disposition: Home Condition: Stable Prescriptions: New mometasone 0.1 % cream 1 applic topical TID PRN (Reason: skin irritation) 7 Days Qty: 45 2RF Pyridium 100 mg tablet 100 mg PO Q8H PRN (Reason: pain) Qty: 60 2RF oxybutynin chloride 10 mg tablet extended release 24hr 10 mg PO DAILY Qty: 30 1RF Continued phentermine 37.5 mg tablet 37.5 ea PO DAILY Discharge Orders: Discharge Order (Routine); Ordered 09/21/23 Ordered By: Ramiro Curiel Discharge Diet: Usual diet Discharge Activity: Increase activity as tolerated Patient Instructions: Hysterectomy (DC), OB Abdominal Surgery - [facility], OB Discharge Report, OB Food/Drug Interaction Guide, Opioid Safety Discharge Attestations PROGRAM DEVELOPMENT SPECIALIST Time Spent in Discharge Care*: less than 30 min Coding Level of Care Code Acute Code for Chg Fwd Diagnoses S/P hysterectomy Z90.710 Time Spent (min) 25
[2023-09-21 12:10] VITALS: RESP 16
[2023-09-21 12:30] VITALS: BP 118/84; PULSE 79; RESP 16; O2SAT 100
[2023-09-21 12:38] VITALS: BP 118/84; PULSE 79; RESP 16; O2SAT 100
== END 2023-09-21 12:38 | disposition home or self-care (01) | DRG 742 ==
LOC: OBGYN 11:17
PROVIDERS: Anesthesiology; Admitting Provider Obstetrics & Gynecology; PCP Nurse Practitioner Family; Visit Provider Obstetrics & Gynecology
PROC: 0UT90ZZ Resection of Uterus, Open Approach (ICD-10-PCS; CPT 58150; principal; 2023-09-19 07:00)
DX: D25.9 Leiomyoma of uterus, unspecified (principal); N99.71 Accidental puncture and laceration of a genitourinary system organ or structure during a genitourinary system procedure; N80.03 Adenomyosis of the uterus; N73.6 Female pelvic peritoneal adhesions (postinfective); N92.0 Excessive and frequent menstruation with regular cycle; Y76.3 Surgical instruments, materials and obstetric and gynecological devices (including sutures) associated with adverse incidents; Y92.234 Operating room of hospital as the place of occurrence of the external cause; G89.29 Other chronic pain; Z98.51 Tubal ligation status; Z80.49 Family history of malignant neoplasm of other genital organs
CPT/HCPCS: 36415; 80053; 84703; 85025; 85027; 86850; 86900; 88307; C9290; J0131; J0690; J1100; J1170; J1885; J2250; J2270; J2405; J2704; J3010; J3490; J7030; J7121

== ENCOUNTER 2023-09-22 08:26 | Emergency (ER) | payer BC, MEDICAID, SELFPAY ==
[2023-09-22 08:31] VITALS: BP 131/87; PULSE 114; RESP 16; TEMP 36.9; O2SAT 99; BMI 38.6
--- NOTE | 2023-09-22 08:37 | W.ED.FEMALGU ---
HPI - Female Genitourinary General: Chief complaint: Urogenital-Female Stated complaint: CATH LEAKING, post hystercetomy Time Seen by Provider: 09/22/23 08:28 Source: patient Mode of arrival: ambulatory Limitations: no limitations History of Present Illness: 33-year-old female who had a hysterectomy last week she had a Shaffer placed that she is post to keep in until next week states she has had leaking around the Shaffer with urine leaking down her leg. She denies any pain denies any fever want to have her Shaffer checked out. Associated symptoms: Deny abdominal pain, headache(s) or nausea Review of Systems Const: Denies: fever(s), chills, body aches or change in appetite ENMT: Denies: throat pain or dental pain Card: Denies: chest pain Resp: Denies: dyspnea GI: Denies: abdominal pain, nausea, vomiting or diarrhea Musc: Denies: neck pain or back pain Neuro: Denies: headache(s) PFSH ED PFSH: Medical History No pertinent past medical history Denies diabetes, asthma, hypertension, seizures, DVT/PE PCP: Maria E Singh Surgical History S/P tubal ligation 01/15/18 Dr Martinez--- total salpingectomy performed bilaterally at time of last S/P section x 2 12/30/2014----->[place] [facility] [place] in active labor at 37 weeks and 4 days. No immediate postoperative complications. 01/15/2018------->Repeat low transverse section with bilateral salpingectomy for sterilization by Dr. Pavel Martinez at [facility] Family History Mother Diabetes Hypertension Uterine cancer diagnosed in her mid 30s Grandmother Diabetes maternal Hypertension paternal Heart disease maternal Ovarian cancer maternal, diagnosed in her early 30s Uterine cancer maternal Thyroid disease maternal Family/Other Diabetes paternal uncle Ovarian cancer maternal aunt, diagnosed in her 30s Denies family history of Colon cancer Hyperlipidemia Breast cancer Stroke Physical Exam Const: COMMON NORMALS: no acute distress, patient oriented x3 and healthy appearing HENMT: COMMON NORMALS: normocephalic and atraumatic HEAD & SCALP: normocephalic and atraumatic Neck/C-Spine: COMMON NORMALS: full ROM and supple Chest: COMMONS NORMALS: normal inspection of the chest Resp: COMMON NORMALS: normal respiratory effort GI: COMMON NORMALS: Normal to inspection, nondistended, normoactive bowel sounds present, Soft to palpation, non-tender and no masses PALPATION: Yes Soft to palpation : OTHER: Shaffer in place with leaking around Shaffer Extremity: COMMON NORMALS: normal to inspection and full ROM Neuro: COMMON NORMALS: patient oriented x3, moves all extremities and no focal motor deficits Psych: COMMON NORMALS: mental status grossly normal, Normal thought process present and cooperative THOUGHT PROCESS: Normal thought process present Skin: COMMON NORMALS: no rashes or lesions noted and no wounds GENERAL SKIN EXAM: no rashes or lesions noted Course Vital Signs: Vital signs: Vital Signs Temperature 98.4 F 09/22/23 08:31 Pulse Rate 114 H 09/22/23 08:31 Respiratory Rate 16 09/22/23 08:31 Blood Pressure 131/87 09/22/23 08:31 Pulse Oximetry 99 09/22/23 08:31 Oxygen Delivery Me thod Room Air 09/22/23 08:31 MDM - Female Medical Decision Making Patient presents for Shaffer complication nurse did advance a Shaffer and blew up the balloon it is no longer leaking she is stable for discharge follow-up with Dr. Curiel as scheduled next week return if worsening. Medical Records I reviewed the patient's medical records. No radiology studies performed this visit Discharge Plan Discharge Patient Disposition: Home Clinical Impression: Complication of Shaffer catheter Qualifiers: Encounter type: initial encounter Qualified Code(s): T83.9XXA - Unspecified complication of genitourinary prosthetic device, implant and graft, initial encounter Condition: Stable Prescriptions: No Action phentermine 37.5 mg tablet 37.5 ea PO DAILY Macrobid 100 mg capsule 100 mg PO BID 10 Days Qty: 20 0RF Rx Instructions: must administer with a meal/food mometasone 0.1 % cream 1 applic topical TID PRN (Reason: skin irritation) 7 Days Qty: 45 2RF Pyridium 100 mg tablet 100 mg PO Q8H PRN (Reason: pain) Qty: 60 2RF oxybutynin chloride 10 mg tablet extended release 24hr 10 mg PO DAILY Qty: 30 1RF Percocet 10-325 mg tablet 1 tab PO BID PRN (Reason: pain) Qty: 30 0RF Discharge Orders: Discharge ED (Routine); Ordered 09/22/23 Ordered By: Jose Adame Referrals: Ramiro Curiel MD [Physician] - 4-7 days Discharge Diet: Advance as tolerated Discharge Activity: Resume usual activity Patient Instructions: Shaffer Catheter Placement and Care (ED) Coding Level of Care Code ED Mushroom Grower for Vinayak Veliz
[2023-09-22 08:55] VITALS: BP 147/82; PULSE 96; O2SAT 97
== END 2023-09-22 08:55 | disposition home or self-care (01) ==
PROVIDERS: Emergency Provider Emergency Medicine; PCP Nurse Practitioner Family
DX: T83.038A Leakage of other urinary catheter, initial encounter (principal); Y73.1 Therapeutic (nonsurgical) and rehabilitative gastroenterology and urology devices associated with adverse incidents
CPT/HCPCS: 99282

== ENCOUNTER 2024-05-04 14:43 | Emergency (ER) | payer BC, MEDICAID, SELFPAY ==
[2024-05-04 14:51] VITALS: BP 118/65; PULSE 103; TEMP 37.1; O2SAT 97; BMI 40.1
--- NOTE | 2024-05-04 15:48 | ECG_ITS ---
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 Measurements Intervals [place] Rate: 111 P: 35 [place]: 112 QRS: 22 QRSD: 87 T: 29 QT: 322 QTc: 438 Interpretive Statements SINUS TACHYCARDIA WITH SHORT [place] INTERVAL Compared to ECG 08/01/2017 18:02:42 Short [place] interval now present Electronically Signed On 05-04-2024 16:04:52 CDT by Ovi Ramon M.D. [email or web address] First [employer] Its Kind [id number]
--- NOTE | 2024-05-04 15:48 | XRR_ITS ---
PROCEDURE INFORMATION: Exam: XR Chest Exam date and time: 05/04/2024 3:57 PM Age: 34 years old Clinical indication: Pain; Angina pectoris; Additional info: Chest pain TECHNIQUE: Imaging protocol: Radiologic exam of the chest. Views: 1 view. COMPARISON: CR XR chest 1V portable [id number] 08/22/2022 6:20 PM FINDINGS: Lungs: No focal consolidation. Pleural spaces: No evidence of pneumothorax. No evidence of pleural effusion. Heart/Mediastinum: Cardiomediastinal silhouette is within normal limits. Bones/joints: No evidence of acute osseous abnormality. XR/XR chest 1V portable [id number] IMPRESSION: 1. No acute cardiopulmonary abnormality.
[2024-05-04 16:24] LABS: Basophils % 0.3 %; Eosinophils % 0.2 %; Hematocrit 41.3 % (36-47); Lymphocytes # 2.5 10^3/uL (0.8-4.8); Lymphocytes % 17.2 %; Mean Corpuscular HGB Conc 31.7 g/dL (30-55); Mean Corpuscular Hemoglobin 24.4 pg (27-33); Mean Corpuscular Volume 77.1 fl (85-98); Mean Platelet Volume 9.6 fL (7.4-10.4); Monocytes # 1.1 10^3/uL (0.2-0.9); Monocytes % 7.8 %; Neutrophils # 10.57 10^3/uL (1.8-7.7); Nucleated Red Blood Cells % 0 %; Platelet Count 379 10^3/cmm (157-399); Red Blood Count 5.36 10^6/uL (3.85-5.65); Red Cell Distribution Width 15.1 % (12.1-15.1); White Blood Count 14.29 10^3/uL (3.29-11.43)
[2024-05-04 16:44] LABS: Alanine Aminotransferase 12 U/L (0-33); Albumin Level 4.3 g/dL (3.5-5.2); Alkaline Phosphatase 114 U/L (35-105); Anion Gap 14.2 (5-19); Aspartate Amino Transferase 13 U/L (0-32); Blood Urea Nitrogen 9 mg/dL (6-20); Calcium 8.9 mg/dL (8.5-10.5); Carbon Dioxide 26 mmol/L (22-29); Chloride 102 mmol/L (98-107); Creatinine Clr Calc Pharmacy 164.0603; Globulin 3.3 g/dL (1.3-4.6); Glomerular Filtration Rate 115.1 mL/min (90-130); Glucose 97 mg/dL (65-115); Osmolality Calculated 287 mOsm/kg (285-295); Potassium 3.2 mmol/L (3.5-5.1); Sodium 139 mmol/L (136-145); Total Bilirubin 0.3 mg/dL (0.15-1.2); Total Protein 7.6 g/dL (6.6-8.7)
--- NOTE | 2024-05-04 18:32 | ECG_ITS ---
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 Measurements Intervals [place] Rate: 83 P: 55 NH: 124 QRS: 31 QRSD: 91 T: 35 QT: 354 QTc: 418 Interpretive Statements SINUS RHYTHM WITH SINUS ARRHYTHMIA Compared to ECG 05/04/2024 14:49:33 Sinus tachycardia no longer present Short [place] interval no longer present Electronically Signed On 05-05-2024 15:27:37 CDT by Ovi Ramon M.D. [id number] f
[2024-05-04 18:34] VITALS: BP 113/68; PULSE 84; TEMP 36.8; O2SAT 98
[2024-05-04 20:18] VITALS: BP 153/84; PULSE 90; RESP 16; O2SAT 97
--- NOTE | 2024-05-04 21:03 | W.ED.CHESTPA ---
HPI - Chest Pain General: Chief Complaint: Chest Pain Stated Complaint: CP/SOB Time Seen by Provider: 05/04/24 20:25 History of Present Illness: Patient says she feels like he has pressure in her left chest that radiates into her back and down her left arm. She has been having this off and on all day today. She says she does not have any cardiac history herself, no MIs no stents. She says her mother has had a heart attack in her 30s. Patient also says she feels fatigued. Denies any shortness of breath diaphoresis or nausea or vomiting. Patient does states she has a history of anxiety and has a lot going on and increase stress in her life. Related Data Home Medications Medication Instructions Recorded Confirmed phentermine 37.5 mg tablet 37.5 ea PO DAILY 04/18/23 04/12/24 Previous Rx's Medication Instructions Recorded cetirizine 10 mg tablet (Zyrtec) 10 mg PO DAILY PRN allergy 01/24/24 symptoms #60 tabs amoxicillin 500 mg tablet 500 mg PO TID #15 tabs 04/12/24 Allergies Allergy/AdvReac Type Severity Reaction Status Date / Time latex Allergy ALGY-Redness Verified 04/12/24 17:42 of Skin Review of Systems General: Reports: 10 or more systems reviewed and unremarkable except in HPI and below PFSH ED PFSH: Medical History No pertinent past medical history Denies diabetes, asthma, hypertension, seizures, DVT/PE PCP: Maria Era Singh Surgical History S/P hysterectomy S/P tubal ligation 01/15/18 Dr Martinez--- total salpingectomy performed bilaterally at time of last S/P section x 2 12/30/2014----->[place] [facility] [place] presentation in active labor at 37 weeks and 4 days. No immediate postoperative complications. 01/15/2018------->Repeat low transverse section with bilateral salpingectomy for sterilization by Dr. Pavel Martinez at [facility] Family History Mother Diabetes Hypertension Uterine cancer diagnosed in her mid 30s Grandmother Diabetes maternal Hypertension paternal Heart disease maternal Ovarian cancer maternal, diagnosed in her early 30s Uterine cancer maternal Thyroid disease maternal Family/Other Diabetes paternal uncle Ovarian cancer maternal aunt, diagnosed in her 30s Denies family history of Colon cancer Hyperlipidemia Breast cancer Stroke Social History Smoking and tobacco/nicotine status: unknown if used tobacco/nicotine Physical Exam Const: COMMON NORMALS: no acute distress, average body habitus, patient oriented x3, no limitations, healthy appearing, alert and well nourished HENMT: COMMON NORMALS: normocephalic, atraumatic, hearing grossly normal bilaterally, external ears normal, Normal external nose present and moist oral mucous membranes HEAD & SCALP: normocephalic and atraumatic NOSE: Normal external nose present EXTERNAL EAR: Yes external ears normal Neck/C-Spine: COMMON NORMALS: full ROM, no lymphadenopathy, supple, no meningeal signs, no JVD and Thyroid normal THYROID: Thyroid normal Chest: COMMONS NORMALS: normal inspection of the chest and normal palpation of entire chest wall Resp: COMMON NORMALS: normal respiratory effort, No retractions, No use of accessory muscles and clear to auscultation bilaterally AUSCULTATION: clear to auscultation bilaterally Cardio: COMMON NORMALS: no JVD, regular rate, regular rhythm, S1 normal heart sound present, S2 normal heart sound present, No gallops present (Cardio), No clicks present (Cardio), No murmurs present (Cardio) and No rub (Cardio) RATE: regular rate RHYTHM: regular rhythm HEART SOUNDS: S1 normal heart sound present and S2 normal heart sound present GI: COMMON NORMALS: Normal to inspection, nondistended, normoactive bowel sounds present, Soft to palpation, non-tender, No hepatosplenomegaly present and no masses PALPATION: Yes Soft to palpation and Yes No hepatosplenomegaly present Neuro: COMMON NORMALS: patient oriented x3 SENSORIUM/ORIENTATION: Yes alert MENINGEAL SIGNS: Yes no meningeal signs Course Vital Signs: Vital signs: Vital Signs Temperature 98.2 F 05/04/24 18:34 Pulse Rate 91 05/04/24 22:32 Respiratory Rate 16 05/04/24 22:32 Blood Pressure 135/85 05/04/24 22:32 Pulse Oximetry 97 05/04/24 22:32 Oxygen Delivery Me thod Room Air 05/04/24 20:18 MDM - Chest Pain Medical Decision Making Patient left AGAINST MEDICAL ADVICE while waiting for lab work to come back Differential Diagnosis Unlikely acute massive pulmonary embolism, acute respiratory failure, acute myocardial infarction, cardiac arrest or sudden cardiac Medical Records I reviewed the patient's medical records. Lab Data I reviewed the patient's lab results. 05/04/24 15:58 05/04/24 15:58 Radiology Impressions Chest X-Ray 05/04/24 15:48 IMPRESSION: 1. No acute cardiopulmonary abnormality. Laboratory Results WBC 14.29 10^3/uL (3.29-11.43) H 05/04/24 15:58 RBC 5.36 10^6/uL (3.85-5.65) 05/04/24 15:58 Hgb 13.10 g/dL (11.27-16.99) 05/04/24 15:58 Hct 41.3 % (36-47) 05/04/24 15:58 MCV 77.1 fl (85-98) L 05/04/24 15:58 MCH 24.4 pg (27-33) L 05/04/24 15:58 MCHC 31.7 g/dL (30-55) 05/04/24 15:58 RDW 15.1 % (12.1-15.1) 05/04/24 15:58 Plt Count 379 10^3/cmm (157-399) 05/04/24 15:58 MPV 9.6 fL (7.4-10.4) 05/04/24 15:58 Neut % (Auto) 74.0 % 05/04/24 15:58 Lymph % (Auto) 17.2 % 05/04/24 15:58 [place] % (Auto) 7.8 % 05/04/24 15:58 Eos % (Auto) 0.2 % 05/04/24 15:58 Baso % (Auto) 0.3 % 05/04/24 15:58 Neut # (Auto) 10.57 10^3/uL (1.8-7.7) H 05/04/24 15:58 Lymph # (Auto) 2.5 10^3/uL (0.8-4.8) 05/04/24 15:58 [place]aton # (Auto) 1.1 10^3/uL (0.2-0.9) H 05/04/24 15:58 Eos # (Auto) 0.0 10^3/uL (0.0-0.8) 05/04/24 15:58 Baso # (Auto) 0.0 10^3/uL (0.0-0.1) 05/04/24 15:58 Nucleated RBC % (auto) 0 % 05/04/24 15:58 Nucleated RBCs # 0.0 /100WBC 05/04/24 15:58 Sodium 139 mmol/L (136-145) 05/04/24 15:58 Potassium 3.2 mmol/L (3.5-5.1) L 05/04/24 15:58 Chloride 102 mmol/L (98-107) 05/04/24 15:58 Carbon Dioxide 26 mmol/L (22-29) 05/04/24 15:58 Anion Gap 14.2 (5-19) 05/04/24 15:58 BUN 9 mg/dL (6-20) 05/04/24 15:58 Creatinine 0.6 mg/dL (0.5-0.9) 05/04/24 15:58 GFR Calculation 115.1 mL/min (90-130) 05/04/24 15:58 Glucose 97 mg/dL (65-115) 05/04/24 15:58 Calculated Osmolality 287 mOsm/kg (285-295) 05/04/24 15:58 Calcium 8.9 mg/dL (8.5-10.5) 05/04/24 15:58 Total Bilirubin 0.3 mg/dL (0.15-1.2) 05/04/24 15:58 AST 13 U/L (0-32) 05/04/24 15:58 ALT 12 U/L (0-33) 05/04/24 15:58 Alkaline Phosphatase 114 U/L (35-105) H 05/04/24 15:58 Troponin T 5th Gen ng/L < 6 ng/L (0-10) 05/04/24 22:31 Total Protein 7.6 g/dL (6.6-8.7) 05/04/24 15:58 Albumin 4.3 g/dL (3.5-5.2) 05/04/24 15:58 Globulin 3.3 g/dL (1.3-4.6) 05/04/24 15:58 All radiology interpretation(s) finalized by discharge Discharge Plan Discharge Patient Disposition: Left Against Medical Advice Clinical Impression: Left against medical advice Condition: Stable Prescriptions: No Action cetirizine [Zyrtec] 10 mg tablet 10 mg PO DAILY PRN (Reason: allergy symptoms) Qty: 60 0RF amoxicillin 500 mg tablet 500 mg PO TID Qty: 15 0RF phentermine 37.5 mg tablet 37.5 ea PO DAILY Referrals: Singh,Maria E, EDUCATIONAL FUNDRAISING DIRECTOR [Primary Care Provider] - 1 week Patient Instructions: Against Medical Advice (ED) Coding Level of Care Code ED Director Of Veterans Affairs for Vinayak Veliz
[2024-05-04 22:32] VITALS: BP 135/85; PULSE 91; RESP 16; O2SAT 97
[2024-05-04 22:47] LABS: Troponin T (5th) Once < 6 ng/L (0-10)
== END 2024-05-04 22:32 | disposition left against medical advice (07) ==
PROVIDERS: Emergency Medicine; Emergency Provider Emergency Medicine; PCP Nurse Practitioner Family
DX: R07.9 Chest pain, unspecified (principal); Z53.29 Procedure and treatment not carried out because of patient's decision for other reasons
CPT/HCPCS: 36415; 71045; 80053; 84484; 85025; 93005; 99285

== ENCOUNTER 2024-05-22 15:53 | Outpatient (CLI) | payer BC, MEDICAID, SELFPAY ==
--- NOTE | 2024-05-22 15:56 | XR_ITS ---
WS: [id number] LEFT FOOT: 3 VIEW(S) TECHNIQUE: AP, oblique and lateral. HISTORY: LEFT FOOT PAIN COMPARISON: 11/09/2009 LEFT ankle No acute fracture or dislocation. Normal tarsal/metatarsal alignment. Development of a 6.5 mm calcaneal spur since 2009. Otherwise calcaneus is negative. XR/XR foot LT min 3V* [id number] IMPRESSION: New calcaneal spur since 2009.
== END 2024-05-22 15:54 | disposition home or self-care (01) ==
LOC: RAD 15:54
PROVIDERS: PCP Nurse Practitioner Family; Visit Provider Nurse Practitioner Family
DX: M77.32 Calcaneal spur, left foot (principal)
CPT/HCPCS: 73630

== ENCOUNTER → 2024-07-12 14:04 | Outpatient (BNVA) | payer BC, MEDICAID, SELFPAY | PROVIDERS: PCP Nurse Practitioner Family; Visit Provider Emergency Medicine | DX: R50.9 Fever, unspecified (principal); J02.9 Acute pharyngitis, unspecified | CPT/HCPCS: 87071; 87400; 87880 ==

== ENCOUNTER → 2024-09-14 08:43 | Outpatient (BNVA) | payer BC, MEDICAID, SELFPAY | PROVIDERS: PCP Nurse Practitioner Family; Visit Provider Obstetrics & Gynecology | DX: R10.2 Pelvic and perineal pain (principal) | CPT/HCPCS: 83001; 84443; 85025 ==

== ENCOUNTER → 2024-09-21 07:54 | Outpatient (BNVA) | payer BC, SELFPAY | PROVIDERS: PCP Nurse Practitioner Family; Visit Provider Obstetrics & Gynecology | DX: R10.2 Pelvic and perineal pain (principal); Z98.890 Other specified postprocedural states | CPT/HCPCS: 76830; 76856 ==

== ENCOUNTER 2024-11-29 16:26 | Emergency (ER) | payer MEDICAID, SELFPAY ==
[2024-11-29 16:43] VITALS: BP 113/83; PULSE 91; RESP 16; TEMP 36.4; O2SAT 100; BMI 39.9
--- NOTE | 2024-11-29 16:58 | USR_ITS ---
PROCEDURE INFORMATION: Exam: US Abdomen, Limited; Right Upper Quadrant Exam date and time: 11/29/2024 5:54 PM Age: 34 years old Clinical indication: Abdominal pain; Localized; Right upper quadrant (ruq); Additional info: Ruq pain, n/v TECHNIQUE: Imaging protocol: Real time ultrasound of the abdomen with image documentation. Limited exam focused on the right upper quadrant. COMPARISON: US pelv w/transvag [id number] 09/21/2024 8:04 AM FINDINGS: Liver: Echogenic, consistent with fatty infiltration. Gallbladder: Cholelithiasis and mild gallbladder distension. No gallbladder wall thickening or pericholecystic fluid. Negative sonographic Yeboah's sign, as per the performing associate medical director. Biliary ducts: No stones. No ductal dilatation. Pancreas: Unremarkable as visualized. Right kidney: No mass. No definite stones. No hydronephrosis. US/US gall bladder [id number] IMPRESSION: 1. Cholelithiasis and mild gallbladder distension without gallbladder wall thickening or pain on transduction. 2. Fatty liver.
[2024-11-29 16:59] LABS: Basophils # 0.1 10^3/uL (0.0-0.1); Basophils % 0.4 %; Eosinophils # 0.1 10^3/uL (0.0-0.8); Eosinophils % 0.8 %; Hematocrit 39.6 % (36-47); Lymphocytes % 21.9 %; Mean Corpuscular HGB Conc 30.8 g/dL (30-55); Mean Corpuscular Hemoglobin 24.6 pg (27-33); Mean Platelet Volume 9.3 fL (7.4-10.4); Monocytes # 1.2 10^3/uL (0.2-0.9); Monocytes % 6.8 %; Neutrophils # 12.38 10^3/uL (1.8-7.7); Neutrophils % 68.4 %; Nucleated Red Blood Cells % 0 %; Platelet Count 347 10^3/cmm (157-399); Red Blood Count 4.95 10^6/uL (3.85-5.65); Red Cell Distribution Width 14.8 % (12.1-15.1); White Blood Count 18.11 10^3/uL (3.29-11.43)
[2024-11-29 17:17] LABS: Alanine Aminotransferase 11 U/L (0-33); Alkaline Phosphatase 95 U/L (35-105); Anion Gap 14.3 (5-19); Aspartate Amino Transferase 13 U/L (0-32); Blood Urea Nitrogen 10 mg/dL (6-20); Calcium 8.7 mg/dL (8.5-10.5); Carbon Dioxide 20 mmol/L (22-29); Chloride 104 mmol/L (98-107); Creatinine Clr Calc Pharmacy 196.4136; Globulin 3.3 g/dL (1.3-4.6); Glomerular Filtration Rate 142.1 mL/min (90-130); Glucose 101 mg/dL (65-115); Lipase 65 U/L (13-60); Osmolality Calculated 277 mOsm/kg (285-295); Potassium 4.3 mmol/L (3.5-5.1); Sodium 134 mmol/L (136-145); Total Bilirubin 0.2 mg/dL (0.15-1.2); Total Protein 7.3 g/dL (6.6-8.7)
[2024-11-29 17:19] LABS: HCG, Serum Qual Negative (Negative)
[2024-11-29] MEDS: cefTRIAXone 1,000 mg SDV 1000 MG IVP (17:45)
[2024-11-29] MEDS: ondansetron 2 mg/ML SDV 2 mL 8 MG IVP (17:45)
[2024-11-29] MEDS: HYDROmorphone 0.5 MG/0.5 ML INJ IVP ×2 (17:45→19:32)
--- NOTE | 2024-11-29 17:48 | ED_ITS ---
HPI - Abdominal Pain 2 General: Chief Complaint: Abdominal Pain Stated Complaint: Right upper abd pain/ N/V Time Seen by Provider: 11/29/24 16:48 Source: patient Mode of arrival: ambulatory Limitations: no limitations History of Present Illness: Patient is a 34-year-old female who presents emergency department complaining of sudden onset right upper quadrant pain radiating into the back beginning about an hour before coming in. Patient states he has not eaten all day, pain began all of a sudden and is a 10/10 sharp pain. States that she has had issues with her appendix in the past, however has never been told she has had gallbladder problems. She is reporting associated diaphoresis, nausea and vomiting. Denies any history of kidney stones, urinary symptoms, fevers, chest pain or shortness of breath. Has not taken any medications or tried anything for her pain. Previous history of hysterectomy, no other abdominal surgeries. Vitals unremarkable at this time. MD elicited complaint: abdominal pain Onset (ago): hour(s) Pain Consistency: constant Location: RUQ Severity: severe Pain scale (0-10): 10 Quality: sharp Radiation: back Associated Symptoms: Reports nausea and vomiting; Denies bloating, change in stool character, chills, constipation, diarrhea, dysuria, fever(s) and hematochezia Related Data Home Medications ?Medication ?Instructions ?Recorded ?Confirmed topiramate 25 mg tablet (Topamax) 25 mg PO BID 5 10/14/24 Previous Rx's ?Medication ?Instructions ?Recorded amoxicillin 875 mg-potassium 1 tab PO BID 10 days #20 tabs 11/29/24 clavulanate 125 mg tablet ondansetron HCl 4 mg tablet 4 mg PO Q8H #30 tabs 11/29 Allergies Allergy/AdvReac Type Severity Reaction Status Date / Time latex Allergy ALGY-Redness Verified 10/14/24 08:53 of Skin Review of Systems 2 General: Reports: 10 or more systems reviewed and unremarkable except in HPI and below Const: Reports: diaphoresis; Denies: fever(s), chills, change in appetite or change in weight ENMT: Denies: throat pain or hoarseness Card: Denies: chest pain, palpitations or lightheadedness Resp: Denies: dyspnea, productive cough or wheezing GI: Reports: abdominal pain, nausea and vomiting; Denies: diarrhea, constipation, bloating, change in stool character or hematochezia : Denies: flank pain, difficulty voiding, dysuria, urinary frequency or urinary urgency Musc: Reports: back pain; Denies: neck pain Skin/Breast: Denies: rash or new lesions Neuro: Denies: headache(s) or dizziness PFSH ED 2 PFSH: Medical History Acute viral syndrome No pertinent past medical history Denies diabetes, asthma, hypertension, seizures, DVT/PE PCP: Maria E Singh Surgical History S/P hysterectomy S/P tubal ligation 01/15/18 Dr Martinez--- total salpingectomy performed bilaterally at time of last S/P section x 2 12/30/2014----->Primary low transverse delivery done [place]. Castellano [place] [facility] [place]ch presentation in active labor at 37 weeks and 4 days. No immediate postoperative complications. 01/15/2018------->Repeat low transverse section with bilateral salpingectomy for sterilization by Dr. Pavel Martinez at [facility] Family History Mother Diabetes Hypertension Uterine cancer diagnosed in her mid 30s Grandmother Diabetes maternal Hypertension paternal Heart disease maternal Ovarian cancer maternal, diagnosed in her early 30s Uterine cancer maternal Thyroid disease maternal Family/Other Diabetes paternal uncle Ovarian cancer maternal aunt, diagnosed in her 30s Denies family history of Colon cancer Hyperlipidemia Breast cancer Stroke Social History Smoking and tobacco/nicotine status: never used tobacco/nicotine Physical Exam 2 Const: COMMON NORMALS: patient oriented x3, no limitations, alert and well nourished GENERAL APPEARANCE: cooperative and anxious NUTRITIONAL APPEARANCE: obese ORIENTATION/CONSCIOUSNESS: Yes awake OTHER: In distress from pain HENMT: COMMON NORMALS: normocephalic, atraumatic, hearing grossly normal bilaterally and moist oral mucous membranes HEAD & SCALP: normocephalic and atraumatic Eye: COMMON NORMALS: Equal, round and reactive pupils present, EOMs intact bilaterally, conjunctivae normal and normal visual forman by confrontation C ONJUNCTIVA: Yes conjunctivae normal PUPIL: Yes Equal, round and reactive pupils present Neck/C-Spine: COMMON NORMALS: full ROM, supple, no meningeal signs and no JVD Resp: COMMON NORMALS: normal respiratory effort, No retractions, No use of accessory muscles and clear to auscultation bilaterally AUSCULTATION: clear to auscultation bilaterally, no crackles, no rales, no rhonchi and no wheezes Cardio: COMMON NORMALS: no JVD, regular rate, regular rhythm, S1 normal heart sound present, S2 normal heart sound present, No gallops present (Cardio), No clicks present (Cardio), No murmurs present (Cardio), No rub (Cardio) and Peripheral pulses 2+ throughout RATE: regular rate RHYTHM: regular rhythm HEART SOUNDS: S1 normal heart sound present and S2 normal heart sound present PERIPHERAL PULSES: Peripheral pulses 2+ throughout GI: COMMON NORMALS: Normal to inspection, nondistended, normoactive bowel sounds present, Soft to palpation, No hepatosplenomegaly present and no masses AUSCULTATION: Yes normoactive bowel sounds PALPATION: Yes Soft to palpation, Yes Tenderness to palpation present (GI) Details: RUQ, No Rigid due to palpation and Yes No hepatosplenomegaly present RECTAL EXAM: deferred OTHER: Positive Yeboah sign Extremity: COMMON NORMALS: normal to inspection and full ROM Neuro: COMMON NORMALS: patient oriented x3, moves all extremities, no focal motor deficits and no sensory deficits noted SENSORIUM/ORIENTATION: Yes alert MENINGEAL SIGNS: Yes no meningeal signs Psych: COMMON NORMALS: mental status grossly normal, cooperative and speech normal SPEECH: Yes normal speech Skin: COMMON NORMALS: no rashes or lesions noted GENERAL SKIN EXAM: no rashes or lesions noted Course 2 Vital Signs: Vital signs: Vital Signs Temperature 97.6 F 11/29/24 16:43 Pulse Rate 86 11/29/24 18:00 Respiratory Rate 16 11/29/24 18:00 Blood Pressure 113/85 11/29/24 18:00 Pulse Oximetry 100 11/29/24 18:00 Oxygen Delivery Me thod Room Air 11/29/24 18:00 MDM - Abdominal Pain Medical Decision Making Patient presenting with right upper quadrant pain beginning today, radiating into back. Still has her gallbladder. Positive Yeboah sign on exam, obese patient with associated reports of nausea and vomiting. White count elevated, reviewing prior labs her white count is always chronically elevated. Rest of her CBC was normal. With her CMP, there is no increase in her LFTs or in her bilirubin, do not suspect any biliary obstruction. Urinalysis was grossly contaminated, thus unreliable. She was given Dilaudid for pain as well as Zofran for nausea through IV, and ultrasound of her gallbladder was obtained showing cholelithiasis with mild gallbladder distention, consistent with gallbladder calculus potential early cholecystitis. Will treat with Augmentin and nausea medications at home and refer her to general surgery. Another dose of Dilaudid given prior to discharge with return precautions given, patient verbalizing understanding. Lab Data 11/29/24 16:54 11/29/24 16:54 Labs/Radiology: Radiology Impressions Gallbladder Ultrasound 11/29/24 16:58 IMPRESSION: 1. Cholelithiasis and mild gallbladder distension without gallbladder wall thickening or pain on transduction. 2. Fatty liver. Laboratory Results WBC 18.11 10^3/uL (3.29-11.43) H 11/29/24 16:54 RBC 4.95 10^6/uL (3.85-5.65) 11/29/24 16:54 Hgb 12.20 g/dL (11.27-16.99) 11/29/24 16:54 Hct 39.6 % (36-47) 11/29/24 16:54 MCV 80.0 fl (85-98) L 11/29/24 16:54 MCH 24.6 pg (27-33) L 11/29/24 16:54 MCHC 30.8 g/dL (30-55) 11/29/24 16:54 RDW 14.8 % (12.1-15.1) 11/29/24 16:54 Plt Count 347 10^3/cmm (157-399) 11/29/24 16:54 MPV 9.3 fL (7.4-10.4) 11/29/24 16:54 Neut % (Auto) 68.4 % 11/29/24 16:54 Lymph % (Auto) 21.9 % 11/29/24 16:54 [place] % (Auto) 6.8 % 11/29/24 16:54 Eos % (Auto) 0.8 % 11/29/24 16:54 Baso % (Auto) 0.4 % 11/29/24 16:54 Neut # (Auto) 12.38 10^3/uL (1.8-7.7) H 11/29/24 16:54 Lymph # (Auto) 4.0 10^3/uL (0.8-4.8) 11/29/24 16:54 [place] # (Auto) 1.2 10^3/uL (0.2-0.9) H 11/29/24 16:54 Eos # (Auto) 0.1 10^3/uL (0.0-0.8) 11/29/24 16:54 Baso # (Auto) 0.1 10^3/uL (0.0-0.1) 11/29/24 16:54 Nucleated RBC % (auto) 0 % 11/29/24 16:54 Nucleated RBCs # 0.0 /100WBC 11/29/24 16:54 Sodium 134 mmol/L (136-145) L 11/29/24 16:54 Potassium 4.3 mmol/L (3.5-5.1) 11/29/24 16:54 Chloride 104 mmol/L (98-107) 11/29/24 16:54 Carbon Dioxide 20 mmol/L (22-29) L 11/29/24 16:54 Anion Gap 14.3 (5-19) 11/29/24 16:54 BUN 10 mg/dL (6-20) 11/29/24 16:54 Creatinine 0.5 mg/dL (0.5-0.9) 11/29/24 16:54 GFR Calculation 142.1 mL/min (90-130) H 11/29/24 16:54 Glucose 101 mg/dL (65-115) 11/29/24 16:54 Calculated Osmolality 277 mOsm/kg (285-295) L 11/29/24 16:54 Calcium 8.7 mg/dL (8.5-10.5) 11/29/24 16:54 Total Bilirubin 0.2 mg/dL (0.15-1.2) 11/29/24 16:54 AST 13 U/L (0-32) 11/29/24 16:54 ALT 11 U/L (0-33) 11/29/24 16:54 Alkaline Phosphatase 95 U/L (35-105) 11/29/24 16:54 Total Protein 7.3 g/dL (6.6-8.7) 11/29/24 16:54 Albumin 4.0 g/dL (3.5-5.2) 11/29/24 16:54 Globulin 3.3 g/dL (1.3-4.6) 11/29/24 16:54 Lipase 65 U/L (13-60) H 11/29/24 16:54 HCG, Qual Negative (Negative) 11/29/24 16:54 Urine Color Yellow (Yellow) 11/29/24 17:49 Urine Appearance Clear (CLEAR) 11/29/24 17:49 Urine pH 5 (5-7) 11/29/24 17:49 Ur Specific [place]is 1.025 (1.005-1.030) 11/29/24 17:49 Urine Protein Neg (Negative) 11/29/24 17:49 Urine Glucose (UA) Norm (Normal) 11/29/24 17:49 Urine Ketones Negative (Negative) 11/29/24 17:49 Urine Blood Neg (Negative) 11/29/24 17:49 Urine Nitrate Negative (Negative) 11/29/24 17:49 Urine Bilirubin Neg (Negative) 11/29/24 17:49 Urine Urobilinogen Norm mg/dL (Negative) 11/29/24 17:49 Ur Leukocyte Esterase 1+ (Negative) H 11/29/24 17:49 Urine RBC 0-2 /hpf (0-2) 11/29/24 17:49 Urine WBC 6-10 /hpf (0-5) 11/29/24 17:49 Ur Squamous Epith Cells 10-15 /hpf (0-5) H 11/29/24 17:49 Amorphous Sediment Not Reportable 11/29/24 17:49 Urine Bacteria 1+ /hpf (NONE) H 11/29/24 17:49 Hyaline Casts 1.21 /lpf 11/29/24 17:49 Urine Yeast 1+ /hpf H 11/29/24 17:49 All radiology interpretation(s) finalized by discharge Discharge Plan Discharge Patient Disposition: Home Clinical Impression: Cholelithiasis Qualifiers: Cholelithiasis location: gallbladder Cholecystitis presence: with cholecystitis Cholecystitis acuity: acute Biliary obstruction: without biliary obstruction Q ualified Code(s): K80.00 - Calculus of gallbladder with acute cholecystitis without obstruction Condition: Stable Prescriptions: New ondansetron HCl 4 mg tablet 4 mg PO Q8H Qty: 30 0RF amoxicillin-pot clavulanate 875-125 mg tablet 1 tab PO BID 10 Days Qty: 20 0RF No Action topiramate [Topamax] 25 mg tablet 25 mg PO BID Discharge Orders: Discharge ED (Routine); Ordered 11/29/24 Ordered By: Rudy Sanford Referrals: Singh,Maria E, [employer] [Primary Care Provider] - Patient Instructions: Cholecystitis (ED), Gallstones (ED) Activity Restrictions/Additional Instructions: Take the antibiotics as prescribed. Zofran for nausea. Ibuprofen and Tylenol for pain. GI soft, low-fat diet. Follow-up with general surgery as arranged. Return with any high fever, worsening of pain or other symptoms. Print Language: Faroese Coding Level of Care Code ED Care Assistant for Vinayak Veliz
[2024-11-29 17:56] VITALS: BP 114/82; PULSE 75; RESP 18; O2SAT 100
[2024-11-29 17:58] LABS: Hyaline Casts Urine 1.21 /lpf; RBC Urine 0-2 /hpf (0-2)
[2024-11-29 18:00] VITALS: BP 113/85; PULSE 86; RESP 16; O2SAT 100
[2024-11-29 18:05] LABS: Add Urine Microscopic? YES; Bilirubin Urine Neg (Negative); Blood Urine Neg (Negative); Glucose Urine UA Norm (Normal); Ketones Urine Negative (Negative); Leukocyte Esterase Urine 1+ (Negative); Nitrate Urine Negative (Negative); Protein Urine Neg (Negative); Specific Gravity, Urine 1.025 (1.005-1.030); Urine Appearance Clear (CLEAR); Urine Color Yellow (Yellow); Urobilinogen Urine Norm (Negative); pH Urine 5 (5-7)
[2024-11-29 18:10] LABS: UA Slide Review UA Slide Review Perf
[2024-11-29 18:11] LABS: Add Urine Culture? Yes; Bacteria Urine 1+ /hpf
[2024-11-29 19:52] VITALS: BP 135/87; PULSE 85; RESP 16; O2SAT 100
--- NOTE | 2024-11-30 07:12 | DCPLANNER ---
messaged gen surg for er f/u
== END 2024-11-29 19:50 | disposition home or self-care (01) ==
PROVIDERS: Emergency Medicine; Emergency Provider Physician Assistant; PCP Nurse Practitioner Family
DX: K80.00 Calculus of gallbladder with acute cholecystitis without obstruction (principal)
CPT/HCPCS: 36415; 76705; 80053; 81001; 83690; 84703; 85025; 87086; 96374; 96375; 96376; 99284; J0696; J1171; J2405

== ENCOUNTER → 2025-01-05 19:04 | Outpatient (BNVA) | payer MEDICAID, SELFPAY | PROVIDERS: PCP Nurse Practitioner Family; Visit Provider Emergency Medicine | DX: J02.9 Acute pharyngitis, unspecified (principal) | CPT/HCPCS: 87071; 87880 ==

== ENCOUNTER 2025-02-12 19:36 | Emergency (ER) | payer MEDICAID, SELFPAY ==
--- OUTSIDE RECORDS SUMMARY | 2024-09-25 09:40 | XMS_ITS ---
Author Organization [facility] Address [address] [place] [id number] Care Team Providers Care Veneer Jointer Returner Name Role Phone Klaus Singh Primary Care Provider SINGH, KLAUS Unavailable Unavailable Encounters Encounter Location Date Provider Diagnosis [facility] Office [address] [place] [address] 09/25/2024 Klaus Singh Plan Of Treatment Next Appt Details Provider Name:Klaus Faulkner Singh, 02/25/2025 03:40:00 PM, [address], [place], [address], Progress Notes * Belkis PALACIOS ADOB: 1 (35 yo F)Acc No.[id number]:09/25/2024 Progress Notes Patient: Belkis VALLE Kathrin Provider: Cody Singh 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
--- OUTSIDE RECORDS SUMMARY | 2025-02-12 19:48 | XMS_ITS | Patient Health Record ---
Author Organization [facility] Address [address] [place] [address] KALIE Dorantes [address] Care Team Providers Care Associate Name Role Phone Singh [facility] Primary Care Provider SINGH, [facility] Unavailable Unavailable Allergies Allergen (clinical drug ingredient) Drug/Non Drug Allergy documented on EMR Reaction Allergy Type Onset Date Status Latex Latex Unknown Allergy Active Results Component Value Reference Range Notes Influenza A/B - 93360 Reviewed date:09/28/2024 11:28:26 AM Interpretation: Performing Lab: Notes/Report: A positive B negative COVID-19 RAPID - 94439 Reviewed date:09/28/2024 11:28:43 AM Interpretation: Performing Lab: Notes/Report: COVID19 negative Thyroid Stimulating Hormone (TSH) 11636 Reviewed date:02/27/2024 05:07:12 PM Interpretation: Performing Lab: Notes/Report: Diagnosis Description: Other fatigue TSH 2.518 .358-3.740 MlU/ML Comprehensive Metabolic Pane l (CMP) 91379 Reviewed date:02/27/2024 05:08:59 PM Interpretation: Performing Lab: Notes/Report: Diagnosis Description: Elevated white blood cell count, unspecified Glucose Serum 76 71-110 MG/DL Testing perfor med at [facility], [address] [place] [address] Dr. Andrez Mcgregor, KALIE [address]. CLIA ID#: [id number] BUN 7 7-21 MG/DL Creat .61 .51-1.17 MG/DL Q-kxawpj-n-benzoquinone imine (NAPQI) is a metabolite of acetaminophen, NAPQI concentrations of apparoximately 10 mg/L correlation to toxic levels of acetaminophen demonstrates a greater than or equil to 10% change in results. NAPQI concentrations greater than this may lead to falsely depressed results for patient samples. Use of this assay is not recommended for patients undergoing treatment with phenindione, due to the potential for falsely depressed results. GFR 120.9 Calculation per formed from GFR calculator provided by the [employer]. Glomerular Filtration rate(GRF) is the best overall index of kidney function. Normal GFR varies according to age,sex, body size, and declines with age. The National [employer] recommends using the CKD-EPI Creatinine Equation(2020) to estimate GFR. BUN/Creat Ratio 11.5 12.0-20.0 % Total Protein 6.5 5.8-8.0 G/DL Albumin 4.0 3.2-4.8 G/DL Globulin 2.5 2.3-3.5 G/DL Alb/Glob 1.6 0.8-2.2 Calcium 9.1 8.7-10.4 MG/DL Sodium 140 136-145 MMOL/L Potassium 4.5 3.5-5.1 MMOL/L Chloride 108 98-107 MMOL/L CO2 25.1 20.0-31.0 MMOL/L Anion Gap 11 5-15 Alk Phos 103 46-116 Bili Total .3 .3-1.2 MG/DL Use of this ass ay is not recommended for patients undergoing treatment with eltrombopag due to the potential for falsely elevated results. AST/SGOT 16 15-37 UNIT/L ALT/SGPT 15 12-78 UNIT/L Osmo Serum,Calculated 287 280-300 MOSM/KG CBC w\ Auto Diff [id number] Reviewed date:02/27/2024 05:08:44 PM Interpretation: Performing Lab: Notes/Report: Diagnosis Description: Elevated white blood cell count, unspecified WBC 12.1 4.5-11.0 X10'3 RBC 4.77 4.00-5.20 X10'6 Hgb 11.3 12.0-16.0 G/DL Hct 37.7 36.0-46.0 % MCV 79.0 80.0-100.0 FL MCH 23.7 27.0-31.0 PG MCHC 30.0 31.0-37.0 G/DL Platelet 326 150-400 X10'3 RDW-SD 45.7 35.0-49.0 FL RDW-CV 16.1 12.2-15.6 % MPV 9.8 9.2-12.0 FL Neutro Auto% 71.8 40.0-70.0 % Lymph Auto% 19.2 22.0-44.0 % Alger Auto% 6.5 3.0-7.0 % Eos Auto% .8 2.0-4.0 % Baso Auto% 0.5 0.0-1.0 % Imm Gran% 1.2 .0-.4 % Neutro Abs 8.71 .80-7.70 Absolute Neutrophil Count 8710 Lymph Abs 2.33 .10-4.10 Alger Abs .79 .20-1.00 Eos Abs .10 .00-.40 Baso Abs .06 .00-.20 Imm Gran Abs .14 .00-.10 NRBC# .00 .00-.20 X10'3 NRBC% .00 .00-.20 /100 int act WBC's Reason For Referral Reason Patient would like r eferral due to continued foot pain. Had x-rays that show calcaneal spur to left foot. Diagnosis 1 Foot pain, left (M79 .672) Referral Organization [facility] Referring Provider First Name [facility] Referring Provider Last Name Singh Referring Provider Speciality Nurse Prac titioner Ref[facility]erred Provider Specialty Orthopedic S urgery General Notes Khushboo Pascal 01/2024 03:58:43 PM >Spoke with [facility]. No apt as of yet. Referral Priority Routine Medications Medication SIG (Take, Route, Frequency, Duration) Notes Start Date End Date Status Chlorzoxazone 500 MG TAKE 1 TABLET BY MOUTH THREE TIMES DAILY NEEDED FOR MUSCLE SPASM FOR 20 DAYS for 20 Active traMADol HCl 50 MG TAKE 1 TABLET BY MOUTH EVERY 4 HOURS NEEDED FOR SEVERE PAIN for 30 10/26/2024 Active Topiramate 50 MG 1 tablet Orally twic e a day for headache prevention for 30 days 08/20/2024 Active Ibuprofen 800 MG TAKE 1 TABLET BY MOUTH WITH FOOD OR MILK NEEDED EVERY 8 HOURS FOR 90 DAYS for 30 Active Phentermine HCl 37.5 MG 1 tablet Orally Once a day for 30 days 01/25/2025 02/24/2025 Active Mometasone Furoate 0.1 % APPLY CREAM TOP ICALLY TO AFFECTED AREA THREE TIMES DAILY NEEDED FOR 7 DAYS FOR SKIN IRRITATION External for 7 Days Not-Taking Immunizations Vaccine Route Administration Date Status Comme nts Flucelvax Trivalent, Syringe 0.5 mL, PF Unknown 024 Refused Social History Tobacco Use: Social History Observation Description Date Details (start date - stop date) Former Smoker NA - NA Alcohol Screen (Audit-C) Question Answer Notes Did [...] way Not at all Total Score 0 Tobacco Control (Standard) Question Answer Notes Tobacco use: Former smoker How long has it been since you last smoked? Grea ter than 10 years Section Notes: 01/16/2022 01/16/2022 01/16/2022 01/16/2022 08/17/2022 PHQ-9 08/17/2022 PHQ-9 08/17/2022 PHQ-9 08/17/2022 PHQ-9 08/17/2022 PHQ-9 08/17/2022 PHQ-9 Depression screen completed 01/27/2024 score 0 Depression screen completed 01/27/2024 score 0 Depression screen completed 01/27/2024 score 0 Depression screen completed 01/27/2024 score 0 Depression screen completed 01/27/2024 score 0 PHQ9 01/25/2025 Problems Problem Type SNOMED Code ICD Code Onset Dates Problem Status W/U Status Risk Notes Problem Morbid obesity (disorder) (492689362) Morbid (severe) obesity due to excess calories (E66.01) Active confirmed Problem 70019037 Anxiety (F41.9) Active confirmed Problem 541476695 Obesity (BMI 30-39.9) (E66.9) Active confirmed Problem 330158559 Obesity, unspecified classification, unspecified obesity type, unspecified whether serious comorbidity present (E66.9) Active confirmed Problem Leukocytosis (613014565) Leukocytosis, unspecified (D72.829) Active confirmed Problem 900675759 BMI 40.0-44.9, adult (Z68.41) Active confirmed Problem 13062081 Acute non-recurrent frontal sinusitis (J01.10) Active confirmed Problem 21582747 Other depression (F32.89) Active confirmed Problem Postablative ovarian failure (411546724) Surgical menopause, symptomatic (E89.41) Active confirmed Problem 365483532 Morbid obesity (E66.01) Active confirmed Problem 06637897 Major depressive disorder with single episode, remission status unspecified (F32.9) Active confirmed Problem 286648376 Encounter for weight management (Z76.89) Active confirmed Problem 908112343 Body mass index [BMI] 36.0-36.9, adult (Z68.36) Active confirmed Problem 467179428 Body mass index [BMI] 37.0-37.9, adult (Z68.37) Active confirmed Problem 381439486 Body mass index [BMI] 38.0-38.9, adult (Z68.38) Active confirmed Problem 693071136 Body mass index [BMI] 39.0-39.9, adult (Z68.39) Active confirmed Problem Morbid obesity (675240732) Morbid obesity with body mass index (BMI) of 40.0 or higher (E66.01) Active confirmed Problem Hysterectomy (323584897) Absence of uterus (Z90.710) Active confirmed Vital Signs Heart Rate 86 /min 01/25/2025 Temperature 97.5 degrees Fahrenheit 01/25/2025 Respiratory Rate 18 /min 01/25/2025 Height-cm 162.56 cm 01/25/2025 Oximetry 98 % 01/25/2025 Blood pressure diastolic 73 mm Hg 01/25/2025 Weight-kg 119.3 kg 01/25/2025 Height 64 in 01/25/2025 Blood pressure systolic 128 mm Hg 01/25/2025 Weight 263 lbs 01/25/2025 BMI 45.14 kg/m2 01/25/2025 Encounters Encounter Location Date Provider Diagnosis [address] [address] 04/16/2024 Maria E Singh [address] [address] 05/27/2024 Maria E Singh Foot pain, left M79. [address] [address] 02/25/2024 Maria E Singh Leukocytosis, unspecified D72.829 ; BMI 40.0-44.9, adult Z68.41 ; Morbid obesity E66.01 ; Lumbar pain M54.50 ; Fatigue R53.83 and Thyroid disorder screen Z13.[address] [address] 05/21/2024 Maria E Singh Foot pain, left M79. 672 and Morbid obesity with body mass index (BMI) of 40.0 or higher E66.[address] [place] [address] 06/23/2024 Maria E Singh Immunization not carried out because of patient refusal Z28.21 ; Morbid obesity with body mass index (BMI) of 40.0 or higher E66.01 and Surgical menopause, symptomatic E89.[address] [address] 08/20/2024 Maria E Singh Headache R51.9 and Morbid obesity with body mass index (BMI) of 40.0 or higher E66.[address] [address] 09/28/2024 Maria E Singh Body aches R52 ; Cou gh R05.9 ; Otitis media H66.90 ; Influenza A J10.1 ; BMI 40.0-44.9, adult Z68.41 ; Headache R51.9 and Absence of uterus Z90.710 [facility] [address] [address] 01/25/2025 Maria E Singh Depression screen Z13.31 ; Morbid obesity with body mass index (BMI) of 40.0 or higher E66.01 ; Headache R51.9 and Weight gain R63.5 Assessments Encounter Date Diagnosis (ICD Code) Assessment Notes Treatment Notes Treatment Clinical Notes Section Notes 02/25/2024 Leukocytosis, unspecified (ICD-10 - D72.829) cbc cmp 02/25/2024 BMI 40.0-44.9, adult (ICD-10 - Z68.41) Discussed with the diet, increase water intake, increase activity, decrease calorie intake, take medication as directed; phentermine e script to patient pharmacy. Patient to lose minimum of 4 pounds and return to clinic 1 month and prn. Pts questions asked and answered. Discharged to home. 05/21/2024 Foot pain, left (ICD-10 - M79.672) tramadol x ray ibuprofen 05/21/2024 Morbid obesity with body mass index (BMI) of 40.0 or higher (ICD-10 - E66.01) Discussed with the diet, increase water intake, increase activity, decrease calorie intake, take medication as directed; phentermine e script to patient pharmacy. Patient to lose minimum of 4 pounds and return to clinic 1 month and prn. Pts questions asked and answered. Discharged to home. 05/27/2024 Foot pain, left (ICD-10 - M79.672) 06/23/2024 Immunization not carried out because of patient refusal (ICD-10 - Z28.21) 06/23/2024 Morbid obesity with body mass index (BMI) of 40.0 or higher (ICD-10 - E66.01) Discussed with the diet, increase water intake, increase activity, decrease calorie intake, take medication as directed; phentermine e script to patient pharmacy. Patient to lose minimum of 4 pounds and return to clinic 1 month and prn. Pts questions asked and answered. Discharged to home. 08/20/2024 Headache (ICD-10 - R51.9) topamax 08/20/2024 Morbid obesity with body mass index (BMI) of 40.0 or higher (ICD-10 - E66.01) Discussed with the diet, increase water intake, increase activity, decrease calorie intake, take medication as directed; phentermine e script to patient pharmacy. Patient to lose minimum of 4 pounds and return to clinic 1 month and prn. Pts questions asked and answered. Discharged to home. 09/28/2024 Body aches (ICD-10 - R52) flu swab; positive A 09/28/2024 Cough (ICD-10 - R05.9) covid; negative 01/25/2025 Depression screen (ICD-10 - Z13.31) 01/25/2025 Morbid obesity with body mass index (BMI) of 40.0 or higher (ICD-10 - E66.01) Discussed with the diet, increase water intake, increase activity, decrease calorie intake, take medication as directed; phentermine e script to patient pharmacy. Patient to lose minimum of 4 pounds and return to clinic 1 month and prn. Pts questions asked and answered. Discharged to home. 01/25/2025 Headache (ICD-10 - R51.9) topamax 09/28/2024 Otitis media (ICD-10 - H66.90) amoxicillin 06/23/2024 Surgical menopause, symptomatic (ICD-10 - E89.41) dr correa 02/25/2024 Morbid obesity (ICD-10 - E66.01) 02/25/2024 Lumbar pain (ICD-10 - M54.50) tramadol 09/28/2024 Influenza A (ICD-10 - J10.1) tamiflu 01/25/2025 Weight gain (ICD-10 - R63.5) 09/28/2024 BMI 40.0-44.9, adult (ICD-10 - Z68.41) 02/25/2024 Fatigue (ICD-10 - R53.83) 02/25/2024 Thyroid disorder screen (ICD-10 - Z13.29) tsh 09/28/2024 Headache (ICD-10 - R51.9) topamax 09/28/2024 Absence of uterus (ICD-10 - Z90.710) 02/25/2024 Other Venipuncture: Performed by: Erick VACA Attempts: x1 Location: RAC Needle gauge: 21g Patient tolerated well. Questions asked and answered; discharged to home. 05/21/2024 Other Questions asked and answered; discharged to home. 06/23/2024 Other Questions asked and answered; discharged to home. 08/20/2024 Other Questions asked and answered; discharged to home. 09/28/2024 Other Questions asked and answered; discharged to home. 01/25/2025 Other Questions asked and answered; discharged to home. Plan Of Treatment Pending Test Test Name Order Date Foot Min 3V Left-[id number] 05/21/2024 Next Appt Details Provider Name:Maria E Singh, 02/25/2025 03:40:00 PM, [address], [place], [address], Insurance Providers Payer Name Payer Address Payer Phone Subscriber Number Group Number Insured Name Patient Relationship to Insured Coverage Start Date Coverage End Date [facility] [employer] [address] [place] [phone] [id number] Belkis Palacios Self - patient is the insured Medical (General) History Medical History History ICD Code Chicken Pox Pneumonia anemia bladder infections migraine headaches Back Trouble bronchitis asthma anxiety depression kidney stones Surgical History Surgery Date(Month/Year) section 12/30/2014 section 01/15/2018 tubal ligation partial hysterectomy Hospitalization History Reason Date(Month/Year) section 01/15/2018 section 12/30/2014
[2025-02-12 19:49] VITALS: BP 135/83; PULSE 83; RESP 16; TEMP 37.2; O2SAT 97; BMI 41.1
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
[2025-02-12] MEDS: oxyCODONE-APAP 5-325 mg Tablet 1 TAB PO (21:03)
[2025-02-12] MEDS: ondansetron hcl ODT 4 mg Tab PO (21:14)
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
== END 2025-02-12 22:54 | disposition home or self-care (01) ==
PROVIDERS: Emergency Provider Student in an Organized Health Care Education/Training Program; PCP Nurse Practitioner Family
DX: S06.0XAA Concussion with loss of consciousness status unknown, initial encounter (principal); S00.83XA Contusion of other part of head, initial encounter; W22.8XXA Striking against or struck by other objects, initial encounter
CPT/HCPCS: 70486; 99284; J9999; Q0162

== ENCOUNTER 2025-03-08 16:23 | Emergency (ER) | payer MEDICAID, SELFPAY ==
[2025-03-08 16:28] VITALS: BP 132/85; PULSE 87; RESP 16; TEMP 36.7; O2SAT 99; BMI 39.9
--- OUTSIDE RECORDS SUMMARY | 2025-03-08 16:29 | XMS_ITS | Patient Health Record ---
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 Name Role Phone Francisco [facility] Primary Care Provider SINGH, [facility] Unavailable Unavailable Allergies Allergen (clinical drug ingredient) Drug/Non Drug Allergy documented on EMR Reaction Allergy Type Onset Date Status Latex Latex Unknown Allergy Active Results Component Value Reference Range Notes Influenza A/B - 36982 Reviewed date:09/28/2024 11:28:26 AM Interpretation: Performing Lab: Notes/Report: A positive B negative COVID-19 RAPID - [id number] Reviewed date:09/28/2024 11:28:43 AM Interpretation: Performing Lab: Notes/Report: COVID19 negative Reason For Referral Reason Patient would like r eferral due to continued foot pain. Had x-rays that show calcaneal spur to left foot. Diagnosis 1 Foot pain, left (M79 .672) Referral Organization [facility] [place] [facility] Referring Provider First Name Maria E Referring Provider Last Name Singh Referring Provider Speciality Nurse Prac titioner Ref[facility] Referred Provider Specialty Orthopedic S urgery General Notes Khushboo Pascal 01/2024 03:58:43 PM >Spoke with [facility]. No apt as of yet. Referral Priority Routine Medications Medication SIG (Take, Route, Frequency, Duration) Notes Start Date End Date Status Mometasone Furoate 0.1 % Cream APPLY CREAM TOPICALLY TO AFFECTED AREA THREE TIMES DAILY NEEDED FOR 7 DAYS FOR SKIN IRRITATION External; Duration: 7 Days Not-Taking Phentermine HCl 37.5 MG Tablet TAKE 1 TABLET BY MOUTH ONCE DAILY FOR 30 DAYS Oral; Duration: 30 Days 02/25/2025 03/27/2025 Active Topiramate 50 MG Tablet 1 tablet Orally twice a day for headache prevention; Duration: 30 days Active Ibuprofen 800 MG Tablet TAKE 1 TABLET BY MOUTH WITH FOOD OR MILK NEEDED EVERY 8 HOURS FOR 90 DAYS; Duration: 30 Active Chlorzoxazone 500 MG Tablet TAKE 1 TABLET BY MOUTH THREE TIMES DAILY NEEDED FOR MUSCLE SPASM FOR 20 DAYS; Duration: 20 Active traMADol HCl 50 MG Tablet TAKE 1 TABLET BY MOUTH EVERY 4 HOURS NEEDED FOR SEVERE PAIN; Duration: 30 02/15/2025 Active Immunizations Vaccine Route Administration Date Status Comme nts Flucelvax Trivalent, Syringe 0.5 mL, PF Unknown 024 Refused Social History Tobacco Use: Social History Observation Description Date Details (start date - stop date) Former Smoker NA - NA Social History Depression Screening Social Info Question Answer Notes depression screening findings Findings Negative (0 -4) PHQ-9 Little interest or p laz in doing things Not at all Feeling [...] way Not at all Total Score 0 Drugs/Alcohol: Social Info Question Answer Notes Alcohol Screen (Audit-C) Did you have a drink containing alcohol in the past year? No Points 0 Interpretation Negative Drugs Have you used drugs other than those for medical reasons in the past 12 months? No Tobacco Use: Social Info Question Answer Notes Tobacco Control (Standard) Tobacco use: Former smoker How long has it been since you last smoked? Greater than 10 years Additional Details Category Social Info Options Details Drugs/Alcohol: Do you smoke marijuana? De nies Do you drink alcohol? 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) Active confirmed Problem Morbid obesity (disorder) (394715951) Morbid (severe) obesity due to excess calories (E66.01) Active confirmed Problem Anxiety (20108001) Anxiety (F41.9) Active confirmed Problem Obesity (199218223) Obesity (BMI 30-39.9) (E66.9) Active confirmed Problem Obesity (910669989) Obesity, unspecified classification, unspecified obesity type, unspecified whether serious comorbidity present (E66.9) Active confirmed Problem Leukocytosis (562260215) Leukocytosis, unspecified (D72.829) Active confirmed Problem Body mass index 40+ - morbidly obese (966018592) BMI 40.0-44.9, adult (Z68.41) Active confirmed Problem Acute frontal sinusitis (11197048) Acute non-recurrent frontal sinusitis (J01.10) Active confirmed Problem Depression (002299519) Other depression (F32.89) Active confirmed Problem Postablative ovarian failure (789006768) Surgical menopause, symptomatic (E89.41) Active confirmed Problem Morbid obesity (433940128) Morbid obesity (E66.01) Active confirmed Problem Major depression, single episode (08039376) Major depressive disorder with single episode, remission status unspecified (F32.9) Active confirmed Problem Seen in weight management clinic (finding) (582183032) Encounter for weight management (Z76.89) Active confirmed Problem Body mass index 35.00 to 39.99 (889159848217545 ) Body mass index [BMI] 36.0-36.9, adult (Z68.36) Active confirmed Problem Body mass index 35.00 to 39.99 (093938464400580 ) Body mass index [BMI] 37.0-37.9, adult (Z68.37) Active confirmed Problem Body mass index 35.00 to 39.99 (809353108362930 ) Body mass index [BMI] 38.0-38.9, adult (Z68.38) Active confirmed Problem Body mass index 35.00 to 39.99 (892538492284429 ) Body mass index [BMI] 39.0-39.9, adult (Z68.39) Active confirmed Problem Morbid obesity (990607174) Morbid obesity with body mass index (BMI) of 40.0 or higher (E66.01) Active confirmed Vital Signs Heart Rate 94 /min 02/25/2025 Temperature 97.0 degrees Fahrenheit 02/25/2025 Respiratory Rate 18 /min 02/25/2025 Height-cm 162.56 cm 02/25/2025 Oximetry 98 % 02/25/2025 Blood pressure diastolic 56 mm Hg 02/25/2025 Weight-kg 114.31 kg 02/25/2025 Height 64 in 02/25/2025 Blood pressure systolic 127 mm Hg 02/25/2025 Weight 252 lbs 02/25/2025 BMI 43.25 kg/m2 02/25/2025 Encounters Encounter Location Date Provider Diagnosis [facility] [address] [address] 04/16/2024 [facility] [address] [address] 05/27/2024 Maria E Singh Foot pain, left M79. 672 [facility] Office [address] [place] [address] 05/21/2024 Maria E Singh Foot pain, left M79. 672 and Morbid obesity with body mass index (BMI) of 40.0 or higher E66.01 [facility] [address] [place] [address] 06/23/2024 [facility] Immunization not carried out because of patient refusal Z28.21 ; Morbid obesity with body mass index (BMI) of 40.0 or higher E66.01 and Surgical menopause, symptomatic E89.[address] [address] 08/20/2024 [facility] Headache R51.9 and Morbid obesity with body mass index (BMI) of 40.0 or higher E66.[address] [address] 09/28/2024 [facility] Body aches R52 ; Cou gh R05.9 ; Otitis media H66.90 ; Influenza A J10.1 ; BMI 40.0-44.9, adult Z68.41 ; Headache R51.9 and Absence of uterus Z90.[address] [address] 01/25/2025 [facility] Depression screen Z13.31 ; Morbid obesity with body mass index (BMI) of 40.0 or higher E66.01 ; Headache R51.9 and Weight gain R63.[address] [address] 02/25/2025 [facility] Morbid obesity with body mass index (BMI) of 40.0 or higher E66.01 Assessments Encounter Date Diagnosis (ICD Code) Assessment Notes Treatment Notes Treatment Clinical Notes Section Notes 05/21/2024 Foot pain, left (ICD-10 - M79.672) [...] questions asked and answered. Discharged to home. 02/25/2025 Morbid obesity with body mass index (BMI) [...] menopause, symptomatic (ICD-10 - E89.41) dr correa 09/28/2024 Influenza A (ICD-10 - J10.1) tamiflu 01/25/2025 Weight gain (ICD-10 - R63.5) 09/28/2024 BMI 40.0-44.9, adult (ICD-10 - Z68.41) 09/28/2024 Headache (ICD-10 - R51.9) topamax 09/28/2024 Absence of uterus (ICD-10 - Z90.710) 05/21/2024 Other Questions asked and answered; discharged to home. 06/23/2024 Other Questions asked and answered; discharged to home. 08/20/2024 Other Questions asked and answered; discharged to home. 09/28/2024 Other Questions asked and answered; discharged to home. 01/25/2025 Other Questions asked and answered; discharged to home. 02/25/2025 Other Questions asked and answered; discharged to home. Plan Of Treatment Pending Test Test Name Order Date Foot Min 3V Left-[id number] 05/21/2024 Next Appt Details Provider Name:Maria E Singh, 03/18/2025 03:40:00 PM, [address] , [facility], [place], [address], Insurance Providers Payer Name Payer Address Payer Phone Subscriber Number Group Number Insured Name Patient Relationship to Insured Coverage Start Date Coverage End Date [facility] [employer] [address] [place] [address] [id number] Belkis Palacios Self - patient is the insured Medical (General) History Medical History History ICD Code Chicken Pox Pneumonia anemia bladder infections migraine headaches Back Trouble bronchitis asthma anxiety depression kidney stones Surgical History Surgery Date(Month/Year) section 12/30/2014 section 01/15/2018 tubal ligation partial hysterectomy Hospitalization History Reason Date(Month/Year) section 01/15/2018 section 12/30/2014
--- NOTE | 2025-03-08 16:35 | XRR_ITS ---
PROCEDURE INFORMATION: Exam: XR Left Hand Exam date and time: 03/08/2025 4:42 PM Age: 35 years old Clinical indication: Injury or trauma; Other: Not specified; Blunt trauma (contusions or hematomas); Hand; Left TECHNIQUE: Imaging protocol: Radiologic exam of the left hand. Views: 3 or more views. COMPARISON: No relevant prior studies available. FINDINGS: Bones/joints: No acute fracture or dislocation. Small ossific densities adjacent to the head of the 2nd proximal phalanx may be from remote trauma. Soft tissues: Normal. XR/XR hand LT min 3V* [id number] IMPRESSION: No acute osseous findings.
--- NOTE | 2025-03-08 19:58 | ED_ITS ---
HPI - Wound/Laceration General: Chief Complaint: Wound/Laceration Stated Complaint: pointer finger on left hand cut/broke Time Seen by Provider: 03/08/25 19:57 History of Present Illness: 35-year-old female presents emergency ro om with complaint of laceration on her left index finger over the dorsal portion of the DIP joint. Unknown last known tetanus. She cut it on the edge of a heating element on a water heater she is concerned that its broken. No obvious deformity. Related Data Previous Rx's ?Medication ?Instructions ?Recorded amoxicillin 500 mg tablet 1,000 mg (2 x 500 mg) PO BID 10 01/05/25 days #40 tabs ibuprofen 600 mg tablet 600 mg PO Q8H PRN pain #30 t abs 01/05/25 oxycodone-acetaminophen 5 mg-325 1 tab PO Q8H PRN pain #12 tabs 02/12/25 mg tablet (Percocet) Allergies Allergy/AdvReac Type Severity Reaction Status Date / Time latex Allergy ALGY-Redness Verified 03/08/25 16:31 of Skin [facility] ED PFSH: Medical History Acute viral syndrome No pertinent past medical history Denies diabetes, asthma, hypertension, seizures, DVT/PE PCP: Maria E Singh Surgical History S/P hysterectomy S/P tubal ligation 01/15/18 Dr Martinez--- total salpingectomy performed bilaterally at time of last S/P section x 2 12/30/2014----->Primary low transverse delivery done by Dr. Castellano at [facility] for breech presentation in active labor at 37 weeks and 4 days. No immediate postoperative complications. 01/15/2018------->Repeat low transverse section with bilateral salpingectomy for sterilization by Dr. Pavel Martinez at [facility] Family History Mother Diabetes Hypertension Uterine cancer diagnosed in her mid 30s Grandmother Diabetes maternal Hypertension paternal Heart disease maternal Ovarian cancer maternal, diagnosed in her early 30s Uterine cancer maternal Thyroid disease maternal Family/Other Diabetes paternal uncle Ovarian cancer maternal aunt, diagnosed in her 30s Denies family history of Colon cancer Hyperlipidemia Breast cancer Stroke Social History Smoking and tobacco/nicotine status: never used tobacco/nicotine Physical Exam Extremity: OTHER: Less than 1 cm laceration overlying the DIP joint of the left index finger patient is able to fully extend and hold against resistance. No active bleeding no gaping. No deformity. Course Vital Signs: Vital signs: Vital Signs Temperature 98.0 F 03/08/25 16:28 Pulse Rate 72 03/08/25 20:25 Respiratory Rate 16 03/08/25 20:25 Blood Pressure 138/86 03/08/25 20:25 Pulse Oximetry 98 03/08/25 20:25 Oxygen Delivery Me thod Room Air 03/08/25 16:28 MDM - Wound/Laceration Medical Decision Making Tetanus updated x-ray is unremarkable no fracture based on clinical exam tenderness intact. Reviewed with the patient she would prefer not to have stitches. Will heal in either event in a similar fashion per her request will forego stitches applied Steri-Strip applied topical antibiotic ointment follow- up as needed Medical Records I reviewed the patient's medical records. Lab Data I reviewed the patient's lab results. Radiology Impressions Hand X-Ray 03/08/25 16:35 IMPRESSION: No acute osseous findings. All radiology interpretation(s) finalized by discharge Discharge Plan Discharge Patient Disposition: Home Clinical Impression: Laceration of finger Condition: Stable Prescriptions: No Action amoxicillin 500 mg tablet 1,000 mg PO BID 10 Days Qty: 40 0RF ibuprofen 600 mg tablet 600 mg PO Q8H PRN (Reason: pain) Qty: 30 0RF oxycodone-acetaminophen [Percocet] 5-325 mg tablet 1 tab PO Q8H PRN (Reason: pain) Qty: 12 0RF Discharge Orders: Discharge ED (Routine); Ordered 03/08/25 Ordered By: Devaughn Mancini Referrals: Francisco,EDMUNDO Sanderson [Primary Care Provider, Nurse Practitioner] Discharge Diet: Usual diet Discharge Activity: Increase activity as tolerated Patient Instructions: Opioid Safety, Pain Management, Patient Portal & Abad Instructions Activity Restrictions/Additional Instructions: Thank you for choosing [facility] for your healthcare needs today. It is very important that you follow up as instructed or that you return to the Emergency Department should you have concerns or if your condition changes or worsens in any way. You are seen in the emergency room after sustaining a laceration to the left index finger. On exam the tendons are intact. X-ray was negative. After discussion we decided to Steri-Strip and chaz tape fingers together for the next 2 days apply topical antibiotic ointment to the wound and allow to heal spontaneously. If you have any signs of infection return to the emergency room or your primary care doctor Print Language: Cymro Coding Level of Care Code ED Licensed Insurance Agent for Vinayak Veliz
[2025-03-08] MEDS: tetanus-dipt-pertussis 0.5 mL SDV IM (20:12)
[2025-03-08] MEDS: ondansetron 2 mg/ML SDV 2 mL 4 MG IM (20:13)
[2025-03-08 20:25] VITALS: BP 138/86; PULSE 72; RESP 16; O2SAT 98
--- NOTE | 2025-03-08 20:25 | PC.NURSE ---
Wound cleansed with NS, abx ointment applied, steri strips placed across lac, finger chaz taped to next finger.
== END 2025-03-08 20:27 | disposition home or self-care (01) ==
PROVIDERS: Emergency Provider Family Medicine; PCP Nurse Practitioner Family
DX: S61.211A Laceration without foreign body of left index finger without damage to nail, initial encounter (principal); X58.XXXA Exposure to other specified factors, initial encounter
CPT/HCPCS: 73130; 90471; 90715; 96372; 99284; J2405

== ENCOUNTER → 2025-04-07 16:27 | Outpatient (BNVA) | payer MEDICAID, SELFPAY | PROVIDERS: PCP Nurse Practitioner Family; Visit Provider Nurse Practitioner Women's Health | DX: Z01.419 Encounter for gynecological examination (general) (routine) without abnormal findings (principal) | CPT/HCPCS: 80053; 82306; 83036; 84443; 85025; 86592; 86705; 86706; 86709; 86803; 87340; 87624; 87806 ==

== ENCOUNTER → 2025-04-21 08:07 | Outpatient (BNVA) | payer MEDICAID, SELFPAY | PROVIDERS: PCP Nurse Practitioner Family; Visit Provider Nurse Practitioner Women's Health | DX: Z98.890 Other specified postprocedural states (principal) | CPT/HCPCS: 76830 ==

== ENCOUNTER 2025-04-22 09:04 | Outpatient (CLI) | payer MEDICAID, SELFPAY ==
--- NOTE | 2025-04-22 09:00 | MM_ITS ---
WS: [id number] BILATERAL 3D TOMOSYNTHESIS DIGITAL DIAGNOSTIC MAMMOGRAPHY WITH CAD CLINICAL INFORMATION: N63.10 - Unspecified lump in the right breast, unspecifie... HISTORY: Palpable lump RIGHT breast COMPARISON: 2016 TECHNIQUE: Bilateral CC, MLO, and ML views. FINDINGS: Scattered fibroglandular densities bilaterally. Palpable marker inner RIGHT breast. No suspicious underlying mammographic abnormalities. Ultrasound described below. Unremarkable LEFT breast ULTRASOUND BREAST RIGHT TECHNIQUE: Ultrasound right breast focused area of concern. CLINICAL INFORMATION: N63.10 - Unspecified lump in the right breast, unspecifie... FINDINGS: Ultrasound RIGHT breast 4 o'clock position 3 cm from the nipple. Normal underlying parenchymal tissue in the area of palpable concern. No underlying cystic or solid lesions. No suspicious findings in the area of concern. MM/MM diag tomosynthesis [id number] IMPRESSION: DENSITY: There are scattered areas of fibroglandular density. BI-RADS: 2 - Benign. FOLLOW UP: Age 41 Recommend annual screening mammography age 41
--- NOTE | 2025-04-22 09:30 | US_ITS ---
WS: [id number] BILATERAL 3D TOMOSYNTHESIS DIGITAL DIAGNOSTIC MAMMOGRAPHY WITH CAD CLINICAL INFORMATION: N63.10 - Unspecified lump in the right breast, unspecifie... HISTORY: Palpable lump RIGHT breast COMPARISON: 2016 TECHNIQUE: Bilateral CC, MLO, and ML views. FINDINGS: Scattered fibroglandular densities bilaterally. Palpable marker inner RIGHT breast. No suspicious underlying mammographic abnormalities. Ultrasound described below. Unremarkable LEFT breast ULTRASOUND BREAST RIGHT TECHNIQUE: Ultrasound right breast focused area of concern. CLINICAL INFORMATION: N63.10 - Unspecified lump in the right breast, unspecifie... FINDINGS: Ultrasound RIGHT breast 4 o'clock position 3 cm from the nipple. Normal underlying parenchymal tissue in the area of palpable concern. No underlying cystic or solid lesions. No suspicious findings in the area of concern. US/US breast RT complete [id number] IMPRESSION: DENSITY: There are scattered areas of fibroglandular density. BI-RADS: 2 - Benign. FOLLOW UP: Age 41 Recommend annual screening mammography age 41
== END 2025-04-22 09:05 | disposition home or self-care (01) ==
LOC: RAD 09:04
PROVIDERS: PCP Nurse Practitioner Family; Visit Provider Nurse Practitioner Women's Health
DX: N64.4 Mastodynia (principal); N63.10 Unspecified lump in the right breast, unspecified quadrant; R92.323 Mammographic fibroglandular density, bilateral breasts
CPT/HCPCS: 76641; 77061; 77062; G0279